=== PATIENT | female | born 1975 | race Caucasian/White ===

== ENCOUNTER 2016-12-15 20:34 | Emergency (ER) | payer BC ==
[~2016-12-15] VITALS: Ht 160 cm; Wt 134.5 kg
[~2016-12-15 20:34] MED LIST: AZIT250T94 PO; BUSP5TAB20 PO; CEPH-443 PO; CETI10CA PO; CIPR500T4 PO; D-ME118S6 PO; FLUT16SP24 NASAL; IBUP800T25 PO; ONDA4TAB14 PO; RANI-270 PO; SODI44SP11 NS
[2016-12-15 20:43] VITALS: Ht 160 cm; Wt 134.5 kg
[2016-12-15 21:14] LABS: URINE BLOOD (Dip) POC 1+ (NEGATIVE)
[2016-12-15 21:24] LABS: ADD SCAN DIFF NO
[2016-12-15 21:27] LABS: BASOPHIL # 0.1 10^3/ul (0.0-0.1); BASOPHILS % 0.3 % (0.0-2.0); EOSINOPHILS # 0.3 10^3/ul (0.0-0.5); EOSINOPHILS % 1.8 % (0.0-7.0); HEMATOCRIT 39.1 % (37.0-47.0); HEMOGLOBIN 12.9 g/dl (12.0-16.0); LYMPHOCYTES # 4.3 10^3/ul (0.8-2.9); LYMPHOCYTES % 29.3 % (15.0-51.0); MEAN CORPUSCULAR HEMOGLOBIN 27.6 pg (29.0-33.0); MEAN CORPUSCULAR VOLUME 83.5 fl (82.0-101.0); MONOCYTE # 0.7 10^3/ul (0.3-0.9); MONOCYTES % 4.8 % (0.0-11.0); NEUTROPHIL # 9.2 10^3/ul (1.6-7.5); NEUTROPHILS % 63.4 % (39.0-77.0); PLATELET COUNT 343 10^3/UL (140-415); RED BLOOD COUNT 4.68 10^6/ul (4.20-5.40); RED CELL DISTRIBUTION WIDTH 14.4 % (11.5-14.5); WHITE BLOOD COUNT 14.5 10^3/ul (4.8-10.8)
[2016-12-15 21:33] LABS: ADD UMIC YES; URINE BILIRUBIN (Dip) NEGATIVE (NEGATIVE); URINE BLOOD (Dip) 1+ (NEGATIVE); URINE COLOR LT. YELLOW (YELLOW); URINE GLUCOSE (Dip) NEGATIVE (NEGATIVE); URINE KETONES (Dip) NEGATIVE (NEGATIVE); URINE LEUKOCYTE ESTERASE (Dip) 1+ (NEGATIVE); URINE NITRITE (Dip) NEGATIVE (NEGATIVE); URINE TOTAL PROTEIN (Dip) TRACE (NEGATIVE); URINE UROBILINOGEN (Dip) 0.2 E.U./dL (0.1-1.0)
[2016-12-15 21:49] LABS: ALBUMIN 3.8 g/dl (3.3-4.9)
[2016-12-15 21:50] LABS: BACTERIA,URINE FEW; POTASSIUM 3.6 mmol/L (3.5-5.1); SQUAMOUS EPITHELIAL CELL,UR MODERATE
[2016-12-15 21:52] LABS: ALBUMIN/GLOBULIN RATIO 1.02; BILIRUBIN,INDIRECT 0.2 mg/dl (0-1.1); BILIRUBIN,TOTAL 0.2 mg/dl (0.2-1.3); CREATININE 0.69 mg/dl (0.44-1.00); TOTAL PROTEIN 7.5 g/dl (6.1-8.1)
[2016-12-15 21:53] LABS: CALCIUM 9.2 mg/dl (8.4-10.2)
[2016-12-15] MEDS ORDERED: KETOROLAC 30 MG INJ IM STA (22:04)
[2016-12-15] MEDS ORDERED: FURO-109 PO (22:08)
[2016-12-15] MEDS ORDERED: NAPR-260 PO (22:08)
[2016-12-15] MEDS ORDERED: CEPH-443 PO (22:08)
[2016-12-15] MEDS ORDERED: CEPHALEXIN 500 MG CAP PO ONE (22:30)
[2016-12-15] MEDS ORDERED: FUROSEMIDE 20 MG TAB PO ONE (22:30)
--- NOTE | 2016-12-15 22:47 | ERD ---
ER Documentation Chief Complaint Date/Time DATE: 12/15/16 TIME: 22:46 Chief Complaint Generalized swelling per pt and Back pain. No known Hx HPI 41-year-old woman presents with bilateral lower extremity swelling 3-4 weeks, began gradually and she denies previous episodes. She has a long history of chronic low back pain as well and has had 3-4 days of back pain which has been nonexertional and nonradiating. Patient has had root urinary frequency but denies hematuria or dysuria, denies weight loss, no fevers or chills, no chest pain or shortness of breath, no orthopnea, no dyspnea on exertion, and no paroxysmal nocturnal dyspnea. Patient denies recent sick contacts, travel or antibiotic use ROS All systems reviewed and are negative except as per history of present illness. Medications Home Meds Active Scripts Cephalexin* (Keflex*) 500 Mg Capsule, 500 MG PO QID for 5 Days, CAP Prov:ORVILLE SOARES MD 12/15/16 Furosemide* (Lasix*) 40 Mg Tablet, 40 MG PO DAILY, #6 TAB Prov:ORVILLE SOARES MD 12/15/16 Naproxen* (Naprosyn*) 500 Mg Tablet, 500 MG PO BID Y for PAIN AND/OR INFLAMMATION, #30 TAB Prov:ORVILLE SOARES MD 12/15/16 Ondansetron (Ondansetron Odt) 4 Mg Tab.rapdis, 4 MG PO Q6H Y for NAUSEA AND/OR VOMITING, #10 TAB Prov:DARREN AVILEZ PA-C 08/04/16 Ciprofloxacin Hcl* (Ciprofloxacin Hcl*) 500 Mg Tablet, 500 MG PO BID for 7 Days , TAB Prov:DARREN AVILEZ PA-C 08/04/16 Cetirizine Hcl* (Zyrtec*) 10 Mg Capsule, 10 MG PO DAILY, #10 TAB.CHEW Prov:NORMAN EID NP 11/17/15 Dextromethorphan Hb-Promethazine Hcl (Promethazine DM Syrup) 180 Ml Syrup, 10 ML PO Q6 Y for COUGH for 10 Days, ML Prov:NORMAN EID NP 11/17/15 Cephalexin* (Keflex*) 500 Mg Capsule, 500 MG PO BID for 7 Days, CAP Prov:JOSE RIVERA NP 08/23/15 Ibuprofen* (Motrin*) 800 Mg Tab, 800 MG PO Q6H Y for PAIN AND OR ELEVATED TEMP, #30 TAB Prov:JOSE RIVERA NP 08/23/15 Azithromycin* (Zithromax*) 250 Mg Tablet, 250 MG PO .ZPACK DIRECTED, #6 TAB TAKE 500 MG (2 TABS) THE FIRST DAY THEN 250 MG (1 TAB) DAYS 2-5 Prov:NORMAN EID NP 08/13/15 Ibuprofen* (Motrin*) 800 Mg Tab, 800 MG PO Q6H Y for PAIN AND OR ELEVATED TEMP, #30 TAB Prov:JOSE RIVERA NP 03/18/15 Fluticasone Propionate* (Flonase* Nasal) 50 Mcg/[place] - 16 Gm [place].susp, 1 SPRAY NASAL DAILY, #1 BOTTLE Prov:JOSE RIVERA NP 03/18/15 Sodium Chloride (Saline Nasal [place]) 45 Ml [place], 2 SPR NS Q2H Y for NASAL CONGESTION, #1 BOT Prov:JOSE RIVERA NP 03/18/15 Reported Medications Buspirone Hcl* (Buspirone Hcl*) 5 Mg Tablet, PO BID 07/31/12 Ranitidine Hcl (Zantac) 150 Mg Tablet, PO BID 07/31/12 Allergies Allergies: Coded Allergies: No Known Drug Allergy (Unverified Allergy, Unknown, 08/23/15) PMhx/Soc BILATERAL MEDULLARY NEPHROCALCINOSIS, chronic back pain, gastritis, obesity, diabetes mellitus Medical and Surgical Hx: pt denies Medical Hx, pt denies Surgical Hx History of Surgery: No Anesthesia Reaction: No Hx Neurological Disorder: No Hx Respiratory Disorders: No Hx Cardiac Disorders: No Hx Psychiatric Problems: No Hx Miscellaneous Medical Probl: No Hx Alcohol Use: No Hx Substance Use: No Hx Tobacco Use: No Smoking Status: Never smoker FmHx Family History: No diabetes Physical Exam Vitals Vital Signs Date Time Temp Pulse Resp B/P Pulse Ox O2 Delivery O2 Flow Rate FiO2 12/15/16 20:43 97.0 99 20 172/84 98 Physical Exam GENERAL: Well-developed, well-nourished, well-hydrated, in no apparent distress , looks nontoxic in appearance HEENT: Moist mucous membranes, pink conjunctiva, no cervical spine tenderness or step-off deformities, no goiter, no jaundice or icterus, extraocular movements intact without pain. No submandibular induration, and no pharyngeal erythema NEURO: Alert and oriented 3, cranial nerves II through XII intact bilaterally, pupils equal round reactive to light, no focal deficits or facial asymmetry, sensation intact distally Strength 5/5 in upper and lower extremities bilaterally CARDIAC: Regular rate and rhythm, no murmurs rubs or gallops LUNGS: Clear bilaterally no wheezing crackles or stridor ABDOMEN: Soft nontender, no guarding, no rigidity, no rebound, no psoas sign no obturator sign. Normoactive bowel sounds SKIN: Warm and dry to touch, no abrasions, contusions, or hematomas, no lacerations, no ecchymosis, no target lesions, and without ulcers EXTREMITIES: No clubbing cyanosis, 3+ pitting edema in the lower extremities bilaterally, calves are bilaterally symmetrical, no Homans sign, no popliteal cord sign. Distal pulses equal and bilateral PSYCH: Normal affect without agitation or irritability Result Diagram: 12/15/16211412/15/162114 Results 24 hrs Laboratory Tests Test 12/15/16 21:14 12/15/16 21:15 Bedside Urine pH (LAB) 6.0 Bedside Urine Protein (LAB) 1+ Bedside Urine Glucose (UA) Negative Bedside Urine Ketones (LAB) Negative Bedside Urine Blood 1+ Bedside Urine Nitrite (LAB) Negative Bedside Urine Leukocyte Esterase (L 1+ White Blood Count 14.510^3/ul Red Blood Count 4.6810^6/ul Hemoglobin 12.9g/dl Hematocrit 39.1% Mean Corpuscular Volume 83.5fl Mean Corpuscular Hemoglobin 27.6pg Mean Corpuscular Hemoglobin Concent 33.0g/dl Red Cell Distribution Width 14.4% Platelet Count 25964^3/UL Mean Platelet Volume 10.0fl Neutrophils % 63.4% Lymphocytes % 29.3% Monocytes % 4.8% Eosinophils % 1.8% Basophils % 0.3% Nucleated Red Blood Cells % 0.0/100WBC Neutrophils # 9.210^3/ul Lymphocytes # 4.310^3/ul Monocytes # 0.710^3/ul Eosinophils # 0.310^3/ul Basophils # 0.110^3/ul Nucleated Red Blood Cells # 0.010^3/ul Urine Color LT. YELLOW Urine Clarity SL HAZY Urine pH 6.0 Urine Specific [place] 1.020 Urine Ketones NEGATIVE Urine Nitrite NEGATIVE Urine Bilirubin NEGATIVE Urine Urobilinogen 0.2 E.U./dL Urine Leukocyte Esterase 1+ Urine Microscopic RBC 2-5/HPF Urine Microscopic WBC 10-25/HPF Urine Squamous Epithelial Cells MODERATE Urine Bacteria FEW Urine Hemoglobin 1+ Urine Glucose NEGATIVE% Urine Total Protein TRACE Sodium Level 141mmol/L Potassium Level 3.6mmol/L Chloride Level 105mmol/L Carbon Dioxide Level 23mmol/L Anion Gap 17 Blood Urea Nitrogen 15mg/dl Creatinine 0.69mg/dl Glucose Level 159mg/dl Calcium Level 9.2mg/dl Total Bilirubin 0.2mg/dl Direct Bilirubin 0.00mg/dl Indirect Bilirubin 0.2mg/dl Aspartate Amino Transf (AST/SGOT) 19IU/L Alanine Aminotransferase (ALT/SGPT) 27IU/L Alkaline Phosphatase 118IU/L Total Protein 7.5g/dl Albumin 3.8g/dl Globulin 3.70g/dl Albumin/Globulin Ratio 1.02 Lipase 100U/L Current Medications Medications (Trade) Dose Ordered Sig/[place] Route PRN Reason Start Time Stop Time Status Last Admin Dose Admin Ketorolac Tromethamine (Toradol) 30 mg ONCE STAT IM 12/15/16 22:04 12/15/16 22:05 DC 12/15/16 22:23 Cephalexin (Keflex) 500 mg ONCE ONCE PO 12/15/16 22:30 12/15/16 22:31 DC 12/15/16 22:21 Furosemide (Lasix) 40 mg ONCE ONCE PO 12/15/16 22:30 12/15/16 22:31 DC 12/15/16 22:22 Procedures/MDM Patient was afebrile, test was negative and urinalysis was consistent with urinary tract infection with elevated urine WBCs and leukocytes. CBC revealed a mild leukocytosis, electrolytes were normal, liver function tests were normal. I administered Toradol 30 mg intramuscular injection for pain control, furosemide 40 mg by mouth for diuresis and cephalexin 500 mg by mouth. Patient will be discharged for follow-up with PMD for reevaluation and repeat urinalysis after antibiotics are completed. Differential diagnoses considered, included but not limited to acute coronary syndrome, deep vein thrombosis of the lower extremities, acute kidney injury, cirrhosis, congestive heart failure, pulmonary embolism, aortic dissection, abdominal aortic aneurysm, sepsis, stroke, meningitis, encephalitis, pneumonia, appendicitis, cholecystitis, bowel obstruction, pyelonephritis, nephrolithiasis , cystitis, as well as metabolic, hematologic, and electrolyte abnormalities. As well as abscess, cellulitis, fractures, and dislocations. Patient feels much better at this time, and vital signs are normal, symptoms have improved. I did give strict instructions to return to the ED if symptoms continue or worsen, patient will otherwise follow-up with primary care physician. Patient understood instructions and agreed to plan. Departure Diagnosis: Primary Impression: Peripheral edema Additional Impressions: Back pain Back pain location: low back pain Chronicity: acute Back pain laterality: bilateral Sciatica presence: without sciatica Qualified Code: M54.5 - Acute bilateral low back pain without sciatica UTI (urinary tract infection) Urinary tract infection type: acute cystitis Hematuria presence: without hematuria Qualified Code: N30.00 - Acute cystitis without hematuria Condition: Good Patient Instructions: Back Pain (Acute Or Chronic), Peripheral Edema, Bilateral , Bladder Infection, Female (Adult) ORVILLE SOARES MD Dec 15, 2016 22:47
[2016-12-15 22:56] VITALS: BP 165/79; PULSE 85; RESP 16
== END 2016-12-15 22:57 | disposition home or self-care (01) ==
LOC: FTE 20:34
DX: R60.0 Localized edema (principal); M54.5 Low back pain; N30.00 Acute cystitis without hematuria; E11.9 Type 2 diabetes mellitus without complications; E66.9 Obesity, unspecified; Z68.43 Body mass index [BMI] 50.0-59.9, adult
CPT/HCPCS: 36415; 80053; 81001; 81003; 83690; 85025; 96372; 99284; J1885; Z7610

== ENCOUNTER 2017-03-29 10:31 | Emergency (ER) | payer BC ==
[~2017-03-29] VITALS: Wt 100.0 kg
[~2017-03-29 10:31] MED LIST changes: +FURO-109 PO; +NAPR-260 PO
[2017-03-29] MEDS ORDERED: ONDANSETRON 4 MG INJ IV STA (11:03)
[2017-03-29] MEDS ORDERED: KETOROLAC 30 MG INJ IV STA (11:03)
[2017-03-29] MEDS ORDERED: SOD CHLORIDE 0.9% 1,000 ML IV STA (11:03)
[2017-03-29 11:32] LABS: URINE BLOOD (Dip) POC 2+ (NEGATIVE)
[2017-03-29 11:53] LABS: ADD UMIC YES; UR ASCORBIC ACID NEGATIVE (NEGATIVE); UR BACTERIA FEW /HPF (NONE SEEN); UR BILIRUBIN (Dip) NEGATIVE (NEGATIVE); UR BLOOD (Dip) 2+ mg/dL (NEGATIVE); UR CLARITY SLIGHTLY CLOUDY (CLEAR); UR COLOR YELLOW (YELLOW); UR GLUCOSE (Dip) NEGATIVE (NEGATIVE); UR KETONES (Dip) NEGATIVE (NEGATIVE); UR LEUKOCYTE ESTERASE (Dip) TRACE Leu/ul (NEGATIVE); UR MUCUS FEW /HPF (NONE SEEN); UR NITRITE (Dip) NEGATIVE (NEGATIVE); UR RBC 28 /HPF (0-5); UR SPECIFIC GRAVITY (Dip) 1.014 (1.003-1.030); UR SQUAMOUS EPITHELIAL CELL FEW /HPF (FEW); UR TOTAL PROTEIN (Dip) 2+ mg/dl (NEGATIVE); UR UROBILINOGEN (Dip) NEGATIVE (NEGATIVE)
[2017-03-29 11:53] LABS: ADD SCAN DIFF NO
--- NOTE | 2017-03-29 11:54 | RADRPT ---
PROCEDURE: US Abdomen (right upper quadrant). CLINICAL INDICATION: Abdominal pain. TECHNIQUE: Multiple real-time longitudinal and transverse images of the right upper quadrant of th e abdomen were acquired utilizing a curved array transducer. Images were reviewed on a high-resoluti on PACS workstation. COMPARISON: 08/23/2015 FINDINGS: The liver is enlarged in size and demonstrates diffusely increased echogenicity without focal mass o r intrahepatic biliary dilatation. The gallbladder is normal. There is no pericholecystic fluid or gallbladder wall thickening or gallstones. No intra or extrahepatic biliary dilatation is seen. T he common bile duct measures 4.4 mm in maximal dimension. The visualized portions of the pancreas a re unremarkable with obscuration of the tail of the pancreas. No free fluid is identified. The right kidney measures 12.2 cm in length. The medullary pyramids are diffusely echogenic within the right kidney. There is otherwise normal echogenicity within the right kidney. There is no sandro nephric fluid collection. No hydronephrosis or mass is seen. IMPRESSION: 1. Hepatomegaly and hepatic steatosis. 2. Diffusely echogenic medullary pyramids, suggesting medullary nephrocalcinosis. RPTAT: JJ .Terrence Kaiser MD, MD Date Time Electronically viewed and signed by .Terrence Kaiser MD, on 03/29/2017 11:53 .A/
[2017-03-29 12:10] LABS: BASOPHIL # 0.1 10^3/ul (0.0-0.1); BASOPHILS % 0.4 % (0.0-2.0); EOSINOPHILS # 0.2 10^3/ul (0.0-0.5); EOSINOPHILS % 1.4 % (0.0-7.0); HEMATOCRIT 43.6 % (37.0-47.0); HEMOGLOBIN 14.1 g/dl (12.0-16.0); LYMPHOCYTES # 3.6 10^3/ul (0.8-2.9); LYMPHOCYTES % 29.9 % (15.0-51.0); MEAN CORPUSCULAR HGB CONC 32.3 g/dl (32.0-37.0); MEAN CORPUSCULAR VOLUME 83.5 fl (82.0-101.0); MONOCYTE # 0.7 10^3/ul (0.3-0.9); MONOCYTES % 6.1 % (0.0-11.0); NEUTROPHIL # 7.5 10^3/ul (1.6-7.5); NEUTROPHILS % 61.9 % (39.0-77.0); PLATELET COUNT 406 10^3/UL (140-415); RED BLOOD COUNT 5.22 10^6/ul (4.20-5.40); RED CELL DISTRIBUTION WIDTH 14.7 % (11.5-14.5); WHITE BLOOD COUNT 12.1 10^3/ul (4.8-10.8)
[2017-03-29 12:27] LABS: ALBUMIN 4.2 g/dl (3.3-4.9); ALBUMIN/GLOBULIN RATIO 1.05; BILIRUBIN,INDIRECT 0.1 mg/dl (0-1.1); BILIRUBIN,TOTAL 0.1 mg/dl (0.2-1.3); CALCIUM 9.7 mg/dl (8.4-10.2); CREATININE 0.86 mg/dl (0.44-1.00); POTASSIUM 3.6 mmol/L (3.5-5.1); TOTAL PROTEIN 8.2 g/dl (6.1-8.1)
--- NOTE | 2017-03-29 13:32 | RADRPT ---
PROCEDURE: CT Abdomen and Pelvis without contrast. CLINICAL INDICATION: Abdominal pain. TECHNIQUE: CT scan of the abdomen and pelvis without contrast was performed on a multidetector hig h-resolution CT scanner. The patient was scanned without intravenous contrast. Coronal and sagittal reformatted images were obtained from the axial source images. Images were reviewed on a high-resol [employer] PACS workstation. One or more of the following dose reduction techniques were used: Automated exposure control, adjustment of the mA and/or kV according to patient size, use of iterative recon struction technique. The total exam CTDI equals 20.18 mGy and the total exam DLP equals 1353.02 mGy -cm. COMPARISON: Correlation with ultrasound from the same day. FINDINGS: CT abdomen: The lung bases are clear. The heart size is normal, without pericardial thickening or effusion. The liver is enlarged measuring 22.6 cm and demonstrates diffusely decreased density without focal m ass or intrahepatic biliary dilatation. The spleen is normal in size and homogeneous in density. T he stomach is grossly unremarkable. The pancreas as visualized is normal. The gallbladder and bili laeny tree are unremarkable and there is no evidence for biliary dilatation. The adrenal glands are s ymmetric and normal. The bilateral renal medullary pyramids are calcified. A 6 mm calculus is present in the distal righ t ureter, just proximal to the ureterovesicular junction. There is associated mild right-sided hydr oureteronephrosis. Suspect additional nonobstructive intrarenal calculi within the bilateral kidneys , difficult to discern secondary to medullary nephrocalcinosis. Otherwise, the kidneys are unremark able. No mass lesion is seen. The aorta is of normal caliber. There is no retroperitoneal lymphadenopathy. The asim hepatis reg ion is clear. The small bowel and mesentery, as visualized, are unremarkable. Scattered diverticula are present throughout the descending and sigmoid colon without evidence of diverticulitis. CT pelvis: The small bowel loops situated within the pelvis are unremarkable. A 2.3 cm fat density lesion is p resent in the right adnexal area. There are associated areas of soft tissue. No definite calcifica tions are seen. Otherwise, the pelvic organs are normal. The pelvic sidewalls and inguinal regions are clear. The sigmoid colon and rectum are unremarkable. The appendix is normal. No mass, lymphad enopathy, or free fluid is seen. No acute inflammation is seen. The surrounding osseous structures are unremarkable. No osteolytic or osteoblastic lesion is detec jessica. IMPRESSION: 1. 6 mm obstructive calculus within the distal right ureter resulting in mild right-sided hydrouret eronephrosis. 2. Bilateral diffusely calcified renal medullary pyramids, consistent with medullary nephrocalcinos is. This may be seen in the setting of medullary sponge kidney, milk-alkali syndrome, renal tubular acidosis, Bolivar syndrome, or hyperparathyroidism. Additional bilateral nonobstructive renal calc ciarra are suspected but difficult to discern secondary to medullary nephrocalcinosis. 3. Diverticulosis without evidence of diverticulitis. 4. 2.3 cm right adnexal fat density lesion, likely representing a dermoid cyst. 5. Hepatic steatosis. RPTAT: JJ .Terrence Kaiser MD, Date Time Electronically viewed and signed by .Terrence Kaiser MD, on 03/29/2017 13:32 .A/
[2017-03-29] MEDS ORDERED: TRAM50TA2 PO (14:26)
--- NOTE | 2017-03-29 14:26 | ERD ---
ER Documentation Chief Complaint Date/Time DATE: 03/29/17 Chief Complaint Right flank pain HPI The patient is a 41-year-old female with a history of nephrocalcinosis and prior kidney stones who presents to the Emergency Department with complaint of right flank pain. The patient reports that on Sunday she developed sudden-onset of right-sided flank pain. The pain is sharp in nature, waxing and waning in intensity. The patient notes that twice the patient has been so strong that she has developed nausea, with nonbilious, nonbloody emesis. Otherwise, she denies any diarrhea. Since onset of her pain, she notes that the pain has been radiating lower to the abdomen, and prior to arrival today felt the pain in the right lower abdomen. As she has a history of kidney stones requiring lithotripsy , she is concerned that she may have a recurrent stone, and therefore presenting to the Emergency Department for evaluation. She denies any dysuria, urinary frequency, urgency, hematuria, vaginal bleeding or new vaginal discharge. Last menstrual period was 03/22/2017 and normal. She has no other complaints at this time. ROS All systems reviewed and are negative except as per history of present illness. Medications Home Meds Active Scripts Ciprofloxacin Hcl* (Ciprofloxacin Hcl*) 500 Mg Tablet, 500 MG PO BID for 7 Days , TAB Prov:KEKE TORRES PA-C 03/29/17 Ibuprofen* (Motrin*) 600 Mg Tab, 600 MG PO Q6, #30 TAB Prov:KEKE TORRES PA-C 03/29/17 Tramadol HCl (Tramadol HCl) 50 Mg Tablet, 50 MG PO Q6 Y for PAIN, #15 TAB Prov:KEKE TORRES PA-C 03/29/17 Cephalexin* (Keflex*) 500 Mg Capsule, 500 MG PO QID for 5 Days, CAP Prov:ORVILLE SOARES MD 12/15/16 Furosemide* (Lasix*) 40 Mg Tablet, 40 MG PO DAILY, #6 TAB Prov:ORVILLE SOARES MD 12/15/16 Naproxen* (Naprosyn*) 500 Mg Tablet, 500 MG PO BID Y for PAIN AND/OR INFLAMMATION, #30 TAB Prov:ORVILLE SOARES MD 12/15/16 Ondansetron (Ondansetron Odt) 4 Mg Tab.rapdis, 4 MG PO Q6H Y for NAUSEA AND/OR VOMITING, #10 TAB Prov:DARREN AVILEZ PA-C 08/04/16 Ciprofloxacin Hcl* (Ciprofloxacin Hcl*) 500 Mg Tablet, 500 MG PO BID for 7 Days , TAB Prov:DARREN AVILEZ PA-C 08/04/16 Cetirizine Hcl* (Zyrtec*) 10 Mg Capsule, 10 MG PO DAILY, #10 TAB.CHEW Prov:NORMAN EID NP 11/17/15 Dextromethorphan Hb-Promethazine Hcl (Promethazine DM Syrup) 180 Ml Syrup, 10 ML PO Q6 Y for COUGH for 10 Days, ML Prov:NORMAN EID NP 11/17/15 Cephalexin* (Keflex*) 500 Mg Capsule, 500 MG PO BID for 7 Days, CAP Prov:JOSE RIVERA NP 08/23/15 Ibuprofen* (Motrin*) 800 Mg Tab, 800 MG PO Q6H Y for PAIN AND OR ELEVATED TEMP, #30 TAB Prov:JOSE RIVERA NP 08/23/15 Azithromycin* (Zithromax*) 250 Mg Tablet, 250 MG PO .RuslanPACK DIRECTED, #6 TAB TAKE 500 MG (2 TABS) THE FIRST DAY THEN 250 MG (1 TAB) DAYS 2-5 Prov:NORMAN EID NP 08/13/15 Ibuprofen* (Motrin*) 800 Mg Tab, 800 MG PO Q6H Y for PAIN AND OR ELEVATED TEMP, #30 TAB Prov:JOSE RIVERA NP 03/18/15 Fluticasone Propionate* (Flonase* Nasal) 50 Mcg/[place] - 16 Gm [place].susp, 1 SPRAY NASAL DAILY, #1 BOTTLE Prov:JOSE RIVERA NP 03/18/15 Sodium Chloride (Saline Nasal [place]) 45 Ml [place], 2 SPR NS Q2H Y for NASAL CONGESTION, #1 BOT Prov:JOSE RIVERA NP 03/18/15 Reported Medications Buspirone Hcl* (Buspirone Hcl*) 5 Mg Tablet, PO BID 07/31/12 Ranitidine Hcl (Zantac) 150 Mg Tablet, PO BID 07/31/12 Allergies Allergies: Coded Allergies: No Known Drug Allergy (Unverified Allergy, Unknown, 08/23/15) PMhx/Soc Medical and Surgical Hx: pt denies Medical Hx, pt denies Surgical Hx History of Surgery: No Anesthesia Reaction: No Hx Neurological Disorder: No Hx Respiratory Disorders: No Hx Cardiac Disorders: No Hx Psychiatric Problems: No Hx Miscellaneous Medical Probl: No Hx Alcohol Use: No Hx Substance Use: No Hx Tobacco Use: No Smoking Status: Never smoker Physical Exam Vitals Vital Signs Date Time Temp Pulse Resp B/P Pulse Ox O2 Delivery O2 Flow Rate FiO2 03/29/17 14:58 98.1 82 20 144/79 98 Room Air 03/29/17 10:33 97.8 115 20 157/96 98 Physical Exam GENERAL: Well-developed, well-nourished, in no acute distress HEENT: Head is normocephalic, atraumatic. No scleral pallor or icterus. Extraocular movements intact. Conjunctiva pink. Moist mucous membranes. NECK: Supple. Full range of motion. RESPIRATORY: Lungs are clear to auscultation bilaterally. No rales, rhonchi or wheezing. Equal breath sounds. Normal expiratory effort. CARDIOVASCULAR: Regular rhythm. S1 and S2 normal. GASTROINTESTINAL: Abdomen is soft and nondistended. Mild tenderness to palpation over the right upper quadrant of the abdomen. Negative Goldsmith's sign. No tenderness at McBurney's point. No guarding, no rebound tenderness. FLANK: No CVA tenderness, no mass or swelling. BACK: No midline tenderness. EXTREMITIES: No clubbing, cyanosis, or edema. Normal skin perfusion. Full range of motion of both the upper and lower extremities bilaterally. Muscle tone is normal. No focal swelling or erythema. Distal pulses are palpable, 2+ bilaterally. Capillary refill is less than 2 seconds. NEUROLOGIC: The patient is alert, awake, and oriented x 3. No focal neurologic deficits. Cranial nerves are grossly intact. Gait is observed and normal. There is no ataxia. Motor normal in all extremities. Sensation grossly intact. Coordination normal. Speech is normal. Normal district manager strength bilaterally. Normal plantar flexion. INTEGUMENT: Skin is clean, dry and intact. No rashes, lesions or petechiae present. Normal turgor. PSYCHIATRIC: Appropriate; Cooperative. Result Diagram: 03/29/17 1135 03/29/17 1135 Results 24 hrs Laboratory Tests Test 03/29/17 11:30 03/29/17 11:35 03/29/17 11:37 Urine Color YELLOW Urine Clarity SLIGHTLY CLOUDY Urine pH 6.0 Urine Specific [place] 1.014 Urine Ketones NEGATIVEmg/dL Urine Nitrite NEGATIVEmg/dL Urine Bilirubin NEGATIVEmg/dL Urine Urobilinogen NEGATIVEmg/dL Urine Leukocyte Esterase TRACELeu/ul Urine Microscopic RBC 28/HPF Urine Microscopic WBC 8/HPF Urine Squamous Epithelial Cells FEW/HPF Urine Bacteria FEW/HPF Urine Mucus FEW/HPF Urine Hemoglobin 2+mg/dL Urine Glucose NEGATIVEmg/dL Urine Total Protein 2+mg/dl White Blood Count 12.110^3/ul Red Blood Count 5.2210^6/ul Hemoglobin 14.1g/dl Hematocrit 43.6% Mean Corpuscular Volume 83.5fl Mean Corpuscular Hemoglobin 27.0pg Mean Corpuscular Hemoglobin Concent 32.3g/dl Red Cell Distribution Width 14.7% Platelet Count 84893^3/UL Mean Platelet Volume 10.0fl Neutrophils % 61.9% Lymphocytes % 29.9% Monocytes % 6.1% Eosinophils % 1.4% Basophils % 0.4% Neutrophils # 7.510^3/ul Lymphocytes # 3.610^3/ul Monocytes # 0.710^3/ul Eosinophils # 0.210^3/ul Basophils # 0.110^3/ul Nucleated Red Blood Cells # 0.010^3/ul Sodium Level 146mmol/L Potassium Level 3.6mmol/L Chloride Level 103mmol/L Carbon Dioxide Level 27mmol/L Anion Gap 20 Blood Urea Nitrogen 14mg/dl Creatinine 0.86mg/dl Glucose Level 142mg/dl Calcium Level 9.7mg/dl Total Bilirubin 0.1mg/dl Direct Bilirubin 0.00mg/dl Indirect Bilirubin 0.1mg/dl Aspartate Amino Transf (AST/SGOT) 44IU/L Alanine Aminotransferase (ALT/SGPT) 54IU/L Alkaline Phosphatase 117IU/L Total Protein 8.2g/dl Albumin 4.2g/dl Globulin 4.00g/dl Albumin/Globulin Ratio 1.05 Lipase 65U/L Serum HCG, Qualitative NEGATIVE Bedside Urine pH (LAB) 6.0 Bedside Urine Protein (LAB) 2+ Bedside Urine Glucose (UA) Negative Bedside Urine Ketones (LAB) Negative Bedside Urine Blood 2+ Bedside Urine Nitrite (LAB) Negative Bedside Urine Leukocyte Esterase (L Trace Current Medications Medications (Trade) Dose Ordered Sig/Arabella Route PRN Reason Start Time Stop Time Status Last Admin Dose Admin Sodium Chloride (NS) 1,000 ml @ 1,000 mls/hr Q1H STAT IV 03/29/17 11:03 03/29/17 12:02 DC 03/29/17 11:37 Ondansetron HCl (Zofran Inj) 4 mg ONCE STAT IV 03/29/17 11:03 03/29/17 11:06 DC 03/29/17 11:37 Ketorolac Tromethamine (Toradol) 30 mg ONCE STAT IV 03/29/17 11:03 03/29/17 11:06 DC 03/29/17 11:38 Procedures/MDM The patient's case was reviewed and discussed with Dr. Soares, ED attending/ supervising physician, who agrees with the plan of care including labs, treatment and advanced imaging as appropriate. DIAGNOSTIC TESTS AND INTERPRETATION: PROCEDURE: US Abdomen (right upper quadrant). CLINICAL INDICATION: Abdominal pain. TECHNIQUE: Multiple real-time longitudinal and transverse images of the right upper quadrant of the abdomen were acquired utilizing a curved array transducer. Images were reviewed on a high-resolution PACS workstation. COMPARISON: 08/23/2015 FINDINGS: The liver is enlarged in size and demonstrates diffusely increased echogenicity without focal mass or intrahepatic biliary dilatation. The gallbladder is normal. There is no pericholecystic fluid or gallbladder wall thickening or gallstones. No intra or extrahepatic biliary dilatation is seen. The common bile duct measures 4.4 mm in maximal dimension. The visualized portions of the pancreas are unremarkable with obscuration of the tail of the pancreas. No free fluid is identified. The right kidney measures 12.2 cm in length. The medullary pyramids are diffusely echogenic within the right kidney. There is otherwise normal echogenicity within the right kidney. There is no perinephric fluid collection. No hydronephrosis or mass is seen. IMPRESSION: 1. Hepatomegaly and hepatic steatosis. 2. Diffusely echogenic medullary pyramids, suggesting medullary nephrocalcinosis. .Terrence Kaiser MD, MD Date Time Electronically viewed and signed by .Terrence Kaiser MD, MD on 03/29/2017 11:53 PROCEDURE: CT Abdomen and Pelvis without contrast. CLINICAL INDICATION: Abdominal pain. TECHNIQUE: CT scan of the abdomen and pelvis without contrast was performed on a multidetector high-resolution CT scanner. The patient was scanned without intravenous contrast. Coronal and sagittal reformatted images were obtained from the axial source images. Images were reviewed on a high-resolution PACS workstation. One or more of the following dose reduction techniques were used: Automated exposure control, adjustment of the mA and/or kV according to patient size, use of iterative reconstruction technique. The total exam CTDI equals 20.18 mGy and the total exam DLP equals 1353.02 mGy-cm. COMPARISON: Correlation with ultrasound from the same day. FINDINGS: CT abdomen: The lung bases are clear. The heart size is normal, without pericardial thickening or effusion. The liver is enlarged measuring 22.6 cm and demonstrates diffusely decreased density without focal mass or intrahepatic biliary dilatation. The spleen is normal in size and homogeneous in density. The stomach is grossly unremarkable. The pancreas as visualized is normal. The gallbladder and biliary tree are unremarkable and there is no evidence for biliary dilatation. The adrenal glands are symmetric and normal. The bilateral renal medullary pyramids are calcified. A 6 mm calculus is present in the distal right ureter, just proximal to the ureterovesicular junction. There is associated mild right-sided hydroureteronephrosis. Suspect additional nonobstructive intrarenal calculi within the bilateral kidneys, difficult to discern secondary to medullary nephrocalcinosis. Otherwise, the kidneys are unremarkable. No mass lesion is seen. The aorta is of normal caliber. There is no retroperitoneal lymphadenopathy. The asim hepatis region is clear. The small bowel and mesentery, as visualized , are unremarkable. Scattered diverticula are present throughout the descending and sigmoid colon without evidence of diverticulitis. CT pelvis: The small bowel loops situated within the pelvis are unremarkable. A 2.3 cm fat density lesion is present in the right adnexal area. There are associated areas of soft tissue. No definite calcifications are seen. Otherwise, the pelvic organs are normal. The pelvic sidewalls and inguinal regions are clear. The sigmoid colon and rectum are unremarkable. The appendix is normal. No mass , lymphadenopathy, or free fluid is seen. No acute inflammation is seen. The surrounding osseous structures are unremarkable. No osteolytic or osteoblastic lesion is detected. IMPRESSION: 1. 6 mm obstructive calculus within the distal right ureter resulting in mild right-sided hydroureteronephrosis. 2. Bilateral diffusely calcified renal medullary pyramids, consistent with medullary nephrocalcinosis. This may be seen in the setting of medullary sponge kidney, milk-alkali syndrome, renal tubular acidosis, [place] syndrome, or hyperparathyroidism. Additional bilateral nonobstructive renal calculi are suspected but difficult to discern secondary to medullary nephrocalcinosis. 3. Diverticulosis without evidence of diverticulitis. 4. 2.3 cm right adnexal fat density lesion, likely representing a dermoid cyst. 5. Hepatic steatosis. .Terrence Kaiser MD, MD Date Time Electronically viewed and signed by .Terrence Kaiser MD, MD on 03/29/2017 13:32 EMERGENCY DEPARTMENT COURSE: The patient was stable throughout the ED course. IV access established by nursing staff. Fluids, Toradol, Zofran administered. Laboratory testing, US and CT imaging performed. On reevaluation, the patient was resting comfortably with no signs of acute distress. She reports significant improvement in her symptoms. MEDICAL DECISION MAKING: This is a 41-year-old female with history of prior kidney stone and nephrocalcinosis presenting to the Emergency Department with complaint of right-sided flank pain radiating to the right lower abdomen. She had mild tenderness to palpation over the right upper abdomen, though negative Goldsmith's sign. She had no lower abdominal tenderness to suggest appendicitis. Abdomen was soft, non-distended, no indication of acute/surgical abdomen. Differential diagnosis includes, but is not limited to, AAA, nephrolithiasis, cystitis, pyelonephritis, biliary colic, pancreatitis, appendicitis, aortic dissection, mesenteric ischemia, hernia, perforated viscous, diverticulitis, bowel obstruction, cancer, ovarian cyst, ovarian torsion, fibroids, shingles, retroperitoneal abscess/ hematoma. US imaging revealed findings consistent with nephrocalcinosis (known to patient). Otherwise, no evidence of cholelithiasis, cholecystitis, cholangitis, gallstone pancreatitis. Creatinine and BUN within normal limits, no prerenal azotemia or acute kidney injury. CT abdomen and pelvis revealed 6 mm obstructive calculus within the distal right ureter resulting in mild right-sided hydroureteronephrosis, and again, findings of medullary nephrocalcinosis. Additionally, patient noted to have a right dermoid cyst. Patient was provided a copy of all results, and advised to follow up as an outpatient. Additionally, urinalysis performed revealed trace urine leukocyte esterase with few bacteria. However, patient currently with dysuria, polyuria, frequency, urgency, hematuria. Will cover patient for possible infection, and prescribe Ciprofloxacin, given findings of ureterolithiasis. After rest and administration of fluids and medications, the patient reports no new complaints, and significantly decreased pain. At this time, the patient is in stable condition and therefore can be discharged home with prescriptions for Ciprofloxacin, Ibuprofen and Tramadol, and given strict return precautions for signs of deteriorating or worsening condition. The patient is advised to follow up with a urologist and primary care provider within 1-2 days for reevaluation and further management, or return to the ER sooner for any new or worsening symptoms. I shared my medical decision making and plan with the patient at length and in great detail, and the patient verbally understands and agrees with the plan for further observation and care as an outpatient. At the time of discharge, all questions were answered. Departure Diagnosis: Primary Impression: Ureterolithiasis Additional Impression: Right flank pain Condition: Stable Patient Instructions: Flank Pain, Uncertain Cause, Kidney Stone W/ Colic Additional Instructions: Call your primary care doctor and urologist TOMORROW for an appointment during the next 1-2 days.See the doctor sooner or return here if your condition worsens before your appointment time. KEKE TORRES PA-C Mar 29, 2017 14:26
[2017-03-29] MEDS ORDERED: CIPR500T4 PO (14:27)
[2017-03-29] MEDS ORDERED: IBUP-1542 PO (14:27)
[2017-03-29 14:58] VITALS: BP 144/79; PULSE 82; RESP 20; TEMP 98.1
== END 2017-03-29 14:59 | disposition home or self-care (01) ==
LOC: FTE 10:31
DX: N20.1 Calculus of ureter (principal); R10.2 Pelvic and perineal pain
CPT/HCPCS: 36415; 74176; 76705; 80053; 81001; 83690; 84703; 85025; 96374; 96375; 99285; J1885; J2405; J7030; 81003

== ENCOUNTER 2017-04-02 08:54 | Emergency (ER) | payer BC ==
[~2017-04-02] VITALS: Ht 160 cm; Wt 131.5 kg
[~2017-04-02 08:54] MED LIST changes: +IBUP-1542 PO; +TRAM50TA2 PO
[2017-04-02 08:57] VITALS: Ht 160 cm; Wt 131.5 kg
[2017-04-02] MEDS ORDERED: KETOROLAC 30 MG INJ IM STA (09:21)
[2017-04-02 10:31] LABS: BASOPHIL # 0.1 10^3/ul (0.0-0.1); BASOPHILS % 0.6 % (0.0-2.0); EOSINOPHILS # 0.3 10^3/ul (0.0-0.5); EOSINOPHILS % 2.3 % (0.0-7.0); HEMATOCRIT 42.6 % (37.0-47.0); HEMOGLOBIN 14.1 g/dl (12.0-16.0); LYMPHOCYTES % 26.2 % (15.0-51.0); MEAN CORPUSCULAR HEMOGLOBIN 27.1 pg (29.0-33.0); MEAN CORPUSCULAR HGB CONC 33.1 g/dl (32.0-37.0); MEAN CORPUSCULAR VOLUME 81.8 fl (82.0-101.0); MONOCYTE # 0.6 10^3/ul (0.3-0.9); NEUTROPHIL # 7.6 10^3/ul (1.6-7.5); NEUTROPHILS % 65.6 % (39.0-77.0); PLATELET COUNT 372 10^3/UL (140-415); RED BLOOD COUNT 5.21 10^6/ul (4.20-5.40); RED CELL DISTRIBUTION WIDTH 14.5 % (11.5-14.5); WHITE BLOOD COUNT 11.5 10^3/ul (4.8-10.8)
[2017-04-02 10:55] LABS: CALCIUM 9.5 mg/dl (8.4-10.2); CREATININE 0.74 mg/dl (0.44-1.00)
[2017-04-02 11:19] VITALS: BP 132/76; PULSE 84; RESP 18; TEMP 97.6
--- NOTE | 2017-04-02 14:41 | ERD ---
ER Documentation Chief Complaint Date/Time DATE: 04/02/17 TIME: 14:35 Chief Complaint right flank pain, was dx kidney stones 4 days ago HPI This patient is a 41-year-old female presenting to the emergency department with complaints of right flank pain. The patient was diagnosed with kidney stones 4 days ago and was seen here with a full abdominal workup at that time. The patient states the symptoms have worsened over the past 4 days. She did not have a follow-up with urologist or her primary care physician. Aggravating factors include movement. Alleviating factors include rest. She denies fevers , chills, chest pain, shortness of breath, or other symptoms currently. ROS All systems reviewed and are negative except as per history of present illness. Medications Home Meds Active Scripts Ciprofloxacin Hcl* (Ciprofloxacin Hcl*) 500 Mg Tablet, 500 MG PO BID for 7 Days , TAB Prov:KEKE TORRES PA-C 03/29/17 Ibuprofen* (Motrin*) 600 Mg Tab, 600 MG PO Q6, #30 TAB Prov:KEKE TORRES PA-C 03/29/17 Tramadol HCl (Tramadol HCl) 50 Mg Tablet, 50 MG PO Q6 Y for PAIN, #15 TAB Prov:KEKE TORRES PA-C 03/29/17 Cephalexin* (Keflex*) 500 Mg Capsule, 500 MG PO QID for 5 Days, CAP Prov:ORVILLE SOARES MD 12/15/16 Furosemide* (Lasix*) 40 Mg Tablet, 40 MG PO DAILY, #6 TAB Prov:ORVILLE SOARES MD 12/15/16 Naproxen* (Naprosyn*) 500 Mg Tablet, 500 MG PO BID Y for PAIN AND/OR INFLAMMATION, #30 TAB Prov:ORVILLE SOARES MD 12/15/16 Ondansetron (Ondansetron Odt) 4 Mg Tab.rapdis, 4 MG PO Q6H Y for NAUSEA AND/OR VOMITING, #10 TAB Prov:DARREN AVILEZ PA-C 08/04/16 Ciprofloxacin Hcl* (Ciprofloxacin Hcl*) 500 Mg Tablet, 500 MG PO BID for 7 Days , TAB Prov:DARREN AVILEZ PA-C 08/04/16 Cetirizine Hcl* (Zyrtec*) 10 Mg Capsule, 10 MG PO DAILY, #10 TAB.CHEW Prov:NORMAN EID I. RETAIL BANKING MANAGER 11/17/15 Dextromethorphan Hb-Promethazine Hcl (Promethazine DM Syrup) 180 Ml Syrup, 10 ML PO Q6 Y for COUGH for 10 Days, ML Prov:NORMAN EID I. RETAIL BANKING MANAGER 11/17/15 Cephalexin* (Keflex*) 500 Mg Capsule, 500 MG PO BID for 7 Days, CAP Prov:JOSE RIVERA RETAIL BANKING MANAGER 08/23/15 Ibuprofen* (Motrin*) 800 Mg Tab, 800 MG PO Q6H Y for PAIN AND OR ELEVATED TEMP, #30 TAB Prov:JOSE RIVERA RETAIL BANKING MANAGER 08/23/15 Azithromycin* (Zithromax*) 250 Mg Tablet, 250 MG PO .ZPACK DIRECTED, #6 TAB TAKE 500 MG (2 TABS) THE FIRST DAY THEN 250 MG (1 TAB) DAYS 2-5 Prov:NORMAN EID I. RETAIL BANKING MANAGER 08/13/15 Ibuprofen* (Motrin*) 800 Mg Tab, 800 MG PO Q6H Y for PAIN AND OR ELEVATED TEMP, #30 TAB Prov:JOSE RIVERA NP 03/18/15 Fluticasone Propionate* (Flonase* Nasal) 50 Mcg/[place] - 16 Gm [place].susp, 1 SPRAY NASAL DAILY, #1 BOTTLE Prov:JOSE RIVERA NP 03/18/15 Sodium Chloride (Saline Nasal [place]) 45 Ml [place], 2 SPR NS Q2H Y for NASAL CONGESTION, #1 BOT Prov:JOSE RIVERA NP 03/18/15 Reported Medications Buspirone Hcl* (Buspirone Hcl*) 5 Mg Tablet, PO BID 07/31/12 Ranitidine Hcl (Zantac) 150 Mg Tablet, PO BID 07/31/12 Allergies Allergies: Coded Allergies: No Known Drug Allergy (Unverified Allergy, Unknown, 04/02/17) PMhx/Soc Medical and Surgical Hx: pt denies Medical Hx, pt denies Surgical Hx History of Surgery: No Anesthesia Reaction: No Hx Neurological Disorder: No Hx Respiratory Disorders: No Hx Cardiac Disorders: No Hx Psychiatric Problems: No Hx Miscellaneous Medical Probl: No Hx Alcohol Use: No Hx Substance Use: No Hx Tobacco Use: No Smoking Status: Never smoker Physical Exam Vitals Vital Signs Date Time Temp Pulse Resp B/P Pulse Ox O2 Delivery O2 Flow Rate FiO2 04/02/17 11:19 97.6 84 18 132/76 97 04/02/17 08:57 98.2 113 18 156/96 97 Physical Exam Const: Morbidly obese female in no acute distress. Nontoxic-appearing. Head: Atraumatic Eyes: Normal Conjunctiva ENT: Normal External Ears, Nose and Mouth. Neck: Full range of motion..~ No meningismus. Resp: Clear to auscultation bilaterally Cardio: Regular rate and rhythm, no murmurs Abd: Soft, non tender, non distended. Normal bowel sounds Skin: No petechiae or rashes Back: No midline tenderness. Right-sided flank tenderness to palpation. No CVA tenderness. Ext: No cyanosis, or edema Neur: Awake and alert Psych: Normal Mood and Affect Result Diagram: 04/02/17 1015 04/02/17 1015 Results 24 hrs Laboratory Tests Test 04/02/17 10:15 White Blood Count 11.510^3/ul Red Blood Count 5.2110^6/ul Hemoglobin 14.1g/dl Hematocrit 42.6% Mean Corpuscular Volume 81.8fl Mean Corpuscular Hemoglobin 27.1pg Mean Corpuscular Hemoglobin Concent 33.1g/dl Red Cell Distribution Width 14.5% Platelet Count 52374^3/UL Mean Platelet Volume 10.0fl Neutrophils % 65.6% Lymphocytes % 26.2% Monocytes % 5.0% Eosinophils % 2.3% Basophils % 0.6% Nucleated Red Blood Cells % 0.0/100WBC Neutrophils # 7.610^3/ul Lymphocytes # 3.010^3/ul Monocytes # 0.610^3/ul Eosinophils # 0.310^3/ul Basophils # 0.110^3/ul Nucleated Red Blood Cells # 0.010^3/ul Sodium Level 145mmol/L Potassium Level 4.0mmol/L Chloride Level 103mmol/L Carbon Dioxide Level 26mmol/L Anion Gap 20 Blood Urea Nitrogen 12mg/dl Creatinine 0.74mg/dl Glucose Level 159mg/dl Calcium Level 9.5mg/dl Current Medications Medications (Trade) Dose Ordered Sig/[place] Route PRN Reason Start Time Stop Time Status Last Admin Dose Admin Ketorolac Tromethamine (Toradol) 30 mg ONCE STAT IM 04/02/17 09:21 04/02/17 09:23 DC 04/02/17 10:26 Procedures/MDM 41-year-old female presents to the emergency department with complaints of increasing pain after she was diagnosed with a right-sided kidney stone 4 days ago. Physical examination is consistent with right-sided stone with findings of right-sided flank pain. CBC and BMP were within normal limits. Creatinine was not elevated and there was no signs of significant kidney involvement. I discussed this case with Dr. Orville Soares, who in light of the normal lab results, recommended the patient have close follow-up with her primary care physician and possibly a urologist. The patient understood the discharge plan of diagnosis. All questions and concerns were addressed. Departure Diagnosis: Primary Impression: Flank pain Condition: Fair Patient Instructions: Kidney Stone W/ Colic Additional Instructions: Follow up with your PCP within the next 1-3 days for a repeat evaluation. If you require a referral to a specialist, your Primary Care Provider may be able to provide this for you. In most patient cases, a referral is not required. If you have further questions regarding this matter, please ask your Primary Care Provider. Return the the emergency department immediately if symptoms worsen or change. If you have any questions regarding medications, ask your pharmacist or us before you leave. If any adverse reactions, occur while taking your medications, discontinue the treatment and return to the emergency department immediately. If any new or worsening symptoms, uncontrolled fevers, or other unexplained symptoms occur, return to the emergency department immediately. Take your medications as directed, and complete the entire course of treatment. ANDERSON DONOVAN PA-C Apr 02, 2017 14:40
== END 2017-04-02 11:18 | disposition home or self-care (01) ==
LOC: FTE 08:54
DX: R10.9 Unspecified abdominal pain (principal); E66.01 Morbid (severe) obesity due to excess calories; Z68.43 Body mass index [BMI] 50.0-59.9, adult
CPT/HCPCS: 36415; 80048; 85025; 96372; 99284; J1885

== ENCOUNTER 2017-08-24 08:36 | Inpatient (IN) | payer BC, MEDICAID ==
[~2017-08-24] VITALS: Ht 160 cm; Wt 133.5 kg
[~2017-08-24 08:36] MED LIST changes: +BUSP5TAB2 PO; -BUSP5TAB20 PO
[2017-08-24] MEDS ORDERED: KETOROLAC 30 MG INJ IV STA (09:05)
[2017-08-24] MEDS ORDERED: SOD CHLORIDE 0.9% 1,000 ML IV STA (09:05)
[2017-08-24] MEDS ORDERED: ONDANSETRON 4 MG INJ IV STA (09:05)
[2017-08-24 10:00] LABS: BASOPHILS % 0.3 % (0.0-2.0); EOSINOPHILS # 0.1 10^3/ul (0.0-0.5); EOSINOPHILS % 0.3 % (0.0-7.0); HEMATOCRIT 42.1 % (37.0-47.0); HEMOGLOBIN 13.9 g/dl (12.0-16.0); LYMPHOCYTES # 2.2 10^3/ul (0.8-2.9); MEAN CORPUSCULAR HEMOGLOBIN 26.7 pg (29.0-33.0); MEAN CORPUSCULAR VOLUME 80.8 fl (82.0-101.0); MEAN PLATELET VOLUME 10.2 fl (7.4-10.4); MONOCYTE # 0.6 10^3/ul (0.3-0.9); MONOCYTES % 3.8 % (0.0-11.0); NEUTROPHIL # 12.9 10^3/ul (1.6-7.5); NEUTROPHILS % 81.2 % (39.0-77.0); PLATELET COUNT 406 10^3/UL (140-415); RED BLOOD COUNT 5.21 10^6/ul (4.20-5.40); RED CELL DISTRIBUTION WIDTH 14.7 % (11.5-14.5); WHITE BLOOD COUNT 15.9 10^3/ul (4.8-10.8)
--- NOTE | 2017-08-24 10:19 | RADRPT ---
PROCEDURE: CT abdomen and pelvis without contrast. CLINICAL INDICATION: Abdominal pain with back pain and chills TECHNIQUE: CT scan of the abdomen and pelvis without contrast was performed on a [email or web address] CT scanner utilizing axial imaging from the lung bases through the pubis symphysis. The patient was sc anned without intravenous contrast. Sagittal and coronal reformatted images were made. The CTDIvol is 23.43 mGy and the DLP is 1628.56 mGycm. DICOM images are available. One of the following 3 dose reduction techniques were used during this CT examination: 1) Automated exposure control 2) Adjustment of the mA +/- kV according to patient size or 3) Use of iterative reconstruction technique COMPARISON: None. FINDINGS: The lung bases are clear. The heart size is normal. No pericardial or pleural effusion is present. The visualized liver is diffusely fatty infiltrated without focal lesions present. Mild hepatic enla rgement is noted which measures 22 cm in superior inferior dimensions. The gallbladder is normal. No evidence for intrahepatic or extrahepatic biliary ductal dilatation is noted. The visualized spleen is normal in size and attenuation. The visualized pancreas and bilateral adren al glands are normal. The bilateral kidneys demonstrate extensive calcifications of the bilateral me dullary pyramids most compatible with medullary nephrocalcinosis. Mild right hydroureteronephrosis i s present secondary to an obstructing right proximal ureteral calculus which measures 7 mm AP by 9 m m in transverse dimensions just beyond the right ureteropelvic junction. The remainder of the right ureter is normal. The left ureter is normal and no evidence for left hydroureteronephrosis is presen t. The visualized aorta is normal without evidence for vascular calcifications or aneurysmal dilatation . The visualized bowel is nonobstructive. Mild diverticulosis is present without evidence for acute di verticulitis or appendicitis. The visualized pelvis demonstrates a distended urinary bladder. The uterus and the bilateral adnexa are normal. No evidence for ascites or pneumoperitoneum is present. Degenerative changes are noted of the bilateral sacroiliac joints and the imaged spine 2 mm degenera tive retrolisthesis present of L5 on S1 . IMPRESSION: 1. Mild right hydroureteronephrosis secondary to an obstructing right proximal 7 mm AP by 9 mm leach sverse ureteral calculus. 2. Bilateral renal medullary calcifications compatible with nephrocalcinosis with medullary sponge [place], milk-alkali syndrome, renal tubular acidosis or other metabolic etiologies not significantly changed from prior CT. 3. Mild diffuse fatty infiltration and mild hepatomegaly 4. Mild diverticulosis without evidence for acute diverticulitis or appendicitis. 5. 2 mm degenerative retrolisthesis of L5 and S1 A call report was made to DESIREE Canales , ( DESIREE Leon in a procedure) at 08/24/2017 10:16:3 2 AM following the completion of the examination by the undersigned. RPTAT: H D C .Nafisa Bentley MD, MD Date Time Electronically viewed and signed by .Nafisa Bentley MD, MD on 08/24/2017 10:19 .C/
[2017-08-24 10:34] LABS: ALBUMIN 4.1 g/dl (3.3-4.9); ALBUMIN/GLOBULIN RATIO 1.05; BILIRUBIN,INDIRECT 0.2 mg/dl (0-1.1); BILIRUBIN,TOTAL 0.2 mg/dl (0.2-1.3); CALCIUM 9.6 mg/dl (8.4-10.2); CREATININE 0.81 mg/dl (0.44-1.00); POTASSIUM 4.1 mmol/L (3.5-5.1)
[2017-08-24 10:36] LABS: ADD UMIC YES; UR ASCORBIC ACID NEGATIVE (NEGATIVE); UR BACTERIA MODERATE /HPF (NONE SEEN); UR BILIRUBIN (Dip) NEGATIVE (NEGATIVE); UR BLOOD (Dip) 1+ mg/dL (NEGATIVE); UR CLARITY SLIGHTLY CLOUDY (CLEAR); UR COLOR YELLOW (YELLOW); UR GLUCOSE (Dip) NEGATIVE (NEGATIVE); UR KETONES (Dip) NEGATIVE (NEGATIVE); UR LEUKOCYTE ESTERASE (Dip) 2+ Leu/ul (NEGATIVE); UR MUCUS FEW /HPF (NONE SEEN); UR NITRITE (Dip) NEGATIVE (NEGATIVE); UR RBC 12 /HPF (0-5); UR SPECIFIC GRAVITY (Dip) 1.009 (1.003-1.030); UR SQUAMOUS EPITHELIAL CELL FEW /HPF (FEW); UR TOTAL PROTEIN (Dip) 1+ mg/dl (NEGATIVE); UR UROBILINOGEN (Dip) NEGATIVE (NEGATIVE)
--- NOTE | 2017-08-24 11:13 | ERD ---
ER Documentation Chief Complaint Chief Complaint Complains of back pain and chills x 3 days HPI 41-year-old female with a history of ureterolithiasis ambulatory to the ED complaining of a 2-3 day history of worsening right flank pain, dysuria, polyuria, fevers and chills. No relieving or exacerbating factors. Nausea but no abdominal pain vomiting or diarrhea. No chest pain, palpitations or shortness of breath. No skin rash. ROS All systems reviewed and are negative except as per history of present illness. Medications Home Meds Active Scripts Ciprofloxacin Hcl* (Ciprofloxacin Hcl*) 500 Mg Tablet, 500 MG PO BID for 7 Days , TAB Prov:KEKE TORRES PA-C 03/29/17 Ibuprofen* (Motrin*) 600 Mg Tab, 600 MG PO Q6, #30 TAB Prov:KEKE TORRES PA-C 03/29/17 Tramadol HCl (Tramadol HCl) 50 Mg Tablet, 50 MG PO Q6 Y for PAIN, #15 TAB Prov:KEKE TORRES PA-C 03/29/17 Cephalexin* (Keflex*) 500 Mg Capsule, 500 MG PO QID for 5 Days, CAP Prov:ORVILLE SOARES MD 12/15/16 Furosemide* (Lasix*) 40 Mg Tablet, 40 MG PO DAILY, #6 TAB Prov:ORVILLE SOARES MD 12/15/16 Naproxen* (Naprosyn*) 500 Mg Tablet, 500 MG PO BID Y for PAIN AND/OR INFLAMMATION, #30 TAB Prov:ORVILLE SOARES MD 12/15/16 Ondansetron (Ondansetron Odt) 4 Mg Tab.rapdis, 4 MG PO Q6H Y for NAUSEA AND/OR VOMITING, #10 TAB Prov:DARREN AVILEZ PA-C 08/04/16 Ciprofloxacin Hcl* (Ciprofloxacin Hcl*) 500 Mg Tablet, 500 MG PO BID for 7 Days , TAB Prov:DARREN AVILEZ PA-C 08/04/16 Cetirizine Hcl* (Zyrtec*) 10 Mg Capsule, 10 MG PO DAILY, #10 TAB.CHEW Prov:NORMAN EID NP 11/17/15 Dextromethorphan Hb-Promethazine Hcl (Promethazine DM Syrup) 180 Ml Syrup, 10 ML PO Q6 Y for COUGH for 10 Days, ML Prov:EIDNORMAN I. CIRCULATING PROCESS INSPECTOR 11/17/15 Cephalexin* (Keflex*) 500 Mg Capsule, 500 MG PO BID for 7 Days, CAP Prov:JOSE RIVERA. CIRCULATING PROCESS INSPECTOR 08/23/15 Ibuprofen* (Motrin*) 800 Mg Tab, 800 MG PO Q6H Y for PAIN AND OR ELEVATED TEMP, #30 TAB Prov:JOSE RIVERA CIRCULATING PROCESS INSPECTOR 08/23/15 Azithromycin* (Zithromax*) 250 Mg Tablet, 250 MG PO .ZPACK DIRECTED, #6 TAB TAKE 500 MG (2 TABS) THE FIRST DAY THEN 250 MG (1 TAB) DAYS 2-5 Prov:EIDNORMAN I. CIRCULATING PROCESS INSPECTOR 08/13/15 Ibuprofen* (Motrin*) 800 Mg Tab, 800 MG PO Q6H Y for PAIN AND OR ELEVATED TEMP, #30 TAB Prov:JOSE RIVERA. CIRCULATING PROCESS INSPECTOR 03/18/15 Fluticasone Propionate* (Flonase* Nasal) 50 Mcg/[place] - 16 Gm [place].susp, 1 SPRAY NASAL DAILY, #1 BOTTLE Prov:JOSE RIVERA NP 03/18/15 Sodium Chloride (Saline Nasal [place]) 45 Ml [place], 2 SPR NS Q2H Y for NASAL CONGESTION, #1 BOT Prov:JOSE RIVERA. CIRCULATING PROCESS INSPECTOR 03/18/15 Reported Medications Buspirone Hcl* (Buspirone Hcl*) 5 Mg Tablet, PO BID 07/31/12 Ranitidine Hcl (Zantac) 150 Mg Tablet, PO BID 07/31/12 Allergies Allergies: Coded Allergies: No Known Drug Allergy (Unverified Allergy, Unknown, 04/02/17) PMhx/Soc Reviewed in chart. As per HPI. History of Surgery: No Anesthesia Reaction: No Hx Neurological Disorder: No Hx Respiratory Disorders: No Hx Cardiac Disorders: No Hx Psychiatric Problems: No Hx Miscellaneous Medical Probl: Yes (Kidney Stones) Hx Alcohol Use: No Hx Substance Use: No Hx Tobacco Use: No Smoking Status: Never smoker FmHx No family history relevant to presenting complaint Physical Exam Vitals Vital Signs Date Time Temp Pulse Resp B/P Pulse Ox O2 Delivery O2 Flow Rate FiO2 08/24/17 13:56 97.6 95 16 137/79 99 Room Air 08/24/17 08:39 97.9 109 20 150/101 99 Physical Exam Const: Alert, moderate distress Head: Atraumatic Eyes: Normal Conjunctiva ENT: Normal External Ears, Nose and Mouth. Neck: Full range of motion. Resp: Clear to auscultation bilaterally Cardio: Regular rate and rhythm, no murmurs Abd: Soft, obese, non tender, non distended. Normal bowel sounds Skin: No petechiae or rashes Back: Right CVA tenderness Ext: No cyanosis, or edema Neur: Awake and alert Psych: Cooperative. Normal Mood and Affect Result Diagram: 08/24/1724 08/24/17901 Results 24 hrs Laboratory Tests Test 08/24/17 08:27 08/24/17 08:55 08/24/17 09:02 08/24/17 09:24 Serum HCG, Qualitative NEGATIVE Urine Color YELLOW Urine Clarity SLIGHTLY CLOUDY Urine pH 6.0 Urine Specific [place] 1.009 Urine Ketones NEGATIVEmg/dL Urine Nitrite NEGATIVEmg/dL Urine Bilirubin NEGATIVEmg/dL Urine Urobilinogen NEGATIVEmg/dL Urine Leukocyte Esterase 2+Juan Pablo/ul Urine Microscopic RBC 12/HPF Urine Microscopic WBC 106/HPF Urine Squamous Epithelial Cells FEW/HPF Urine Bacteria MODERATE/HPF Urine Mucus FEW/HPF Urine Hemoglobin 1+mg/dL Urine Glucose NEGATIVEmg/dL Urine Total Protein 1+mg/dl Sodium Level 142mmol/L Potassium Level 4.1mmol/L Chloride Level 105mmol/L Carbon Dioxide Level 23mmol/L Anion Gap 18 Blood Urea Nitrogen 14mg/dl Creatinine 0.81mg/dl Glucose Level 132mg/dl Calcium Level 9.6mg/dl Total Bilirubin 0.2mg/dl Direct Bilirubin 0.00mg/dl Indirect Bilirubin 0.2mg/dl Aspartate Amino Transf (AST/SGOT) 25IU/L Alanine Aminotransferase (ALT/SGPT) 32IU/L Alkaline Phosphatase 155IU/L Total Protein 8.0g/dl Albumin 4.1g/dl Globulin 3.90g/dl Albumin/Globulin Ratio 1.05 Lipase 65U/L White Blood Count 15.910^3/ul Red Blood Count 5.2110^6/ul Hemoglobin 13.9g/dl Hematocrit 42.1% Mean Corpuscular Volume 80.8fl Mean Corpuscular Hemoglobin 26.7pg Mean Corpuscular Hemoglobin Concent 33.0g/dl Red Cell Distribution Width 14.7% Platelet Count 99646^3/UL Mean Platelet Volume 10.2fl Neutrophils % 81.2% Lymphocytes % 14.0% Monocytes % 3.8% Eosinophils % 0.3% Basophils % 0.3% Nucleated Red Blood Cells % 0.0/100WBC Neutrophils # 12.910^3/ul Lymphocytes # 2.210^3/ul Monocytes # 0.610^3/ul Eosinophils # 0.110^3/ul Basophils # 0.010^3/ul Nucleated Red Blood Cells # 0.010^3/ul Current Medications Medications (Trade) Dose Ordered Sig/Arabella Route PRN Reason Start Time Stop Time Status Last Admin Dose Admin Sodium Chloride (NS) 1,000 ml @ 1,000 mls/hr Q1H STAT IV 08/24/17 09:05 08/24/17 10:04 DC 08/24/17 10:01 Ondansetron HCl (Zofran Inj) 4 mg ONCE STAT IV 08/24/17 09:05 08/24/17 09:07 DC 08/24/17 09:41 Ketorolac Tromethamine 30 mg 30 mg ONCE STAT IV 08/24/17 09:05 08/24/17 09:07 DC 08/24/17 09:41 Ceftriaxone Sodium 50 ml @ 100 mls/hr ONCE ONCE IVPB 08/24/17 14:00 08/24/17 14:29 DC 08/24/17 13:31 Ceftriaxone Sodium 500 mg/ Sodium Chloride 50 ml @ 100 mls/hr Q24H IVPB 08/25/17 13:30 Sodium Chloride (NS) 1,000 ml @ 125 mls/hr Q8H IV 08/24/17 14:00 08/24/17 14:31 Ondansetron HCl (Zofran Inj) 4 mg Q6H PRN IV NAUSEA AND/OR VOMITING 08/24/17 14:00 Ketorolac Tromethamine (Toradol) 30 mg Q6H PRN IV PAIN 08/24/17 14:00 08/27/17 13:59 08/24/17 16:40 Morphine Sulfate (morphine) 2 mg Q4H PRN IV pain 08/24/17 14:00 Docusate Sodium (Colace) 100 mg BID PO 08/24/17 15:00 Ondansetron HCl (Zofran Inj) 4 mg BRIDGE ORDER PRN IV NAUSEA AND/OR VOMITING 08/24/17 16:30 08/25/17 16:29 08/24/17 16:39 Acetaminophen (Tylenol Tab) 650 mg ER BRIDGE PRN PO MILD PAIN/FEVER 08/24/17 16:30 08/25/17 16:29 PROCEDURE: CT abdomen and pelvis without contrast. CLINICAL INDICATION: Abdominal pain with back pain and chills TECHNIQUE: CT scan of the abdomen and pelvis without contrast was performed on a [employer] CT scanner utilizing axial imaging from the lung bases through the pubis symphysis. The patient was scanned without intravenous contrast. Sagittal and coronal reformatted images were made. The CTDIvol is 23.43 mGy and the DLP is 1628.56 mGycm. DICOM images are available. One of the following 3 dose reduction techniques were used during this CT examination: 1) Automated exposure control 2) Adjustment of the mA +/- kV according to patient size or 3) Use of iterative reconstruction technique COMPARISON: None. FINDINGS: The lung bases are clear. The heart size is normal. No pericardial or pleural effusion is present. The visualized liver is diffusely fatty infiltrated without focal lesions present. Mild hepatic enlargement is noted which measures 22 cm in superior inferior dimensions. The gallbladder is normal. No evidence for intrahepatic or extrahepatic biliary ductal dilatation is noted. The visualized spleen is normal in size and attenuation. The visualized pancreas and bilateral adrenal glands are normal. The bilateral kidneys demonstrate extensive calcifications of the bilateral medullary pyramids most compatible with medullary nephrocalcinosis. Mild right hydroureteronephrosis is present secondary to an obstructing right proximal ureteral calculus which measures 7 mm AP by 9 mm in transverse dimensions just beyond the right ureteropelvic junction. The remainder of the right ureter is normal. The left ureter is normal and no evidence for left hydroureteronephrosis is present. The visualized aorta is normal without evidence for vascular calcifications or aneurysmal dilatation. The visualized bowel is nonobstructive. Mild diverticulosis is present without evidence for acute diverticulitis or appendicitis. The visualized pelvis demonstrates a distended urinary bladder. The uterus and the bilateral adnexa are normal. No evidence for ascites or pneumoperitoneum is present. Degenerative changes are noted of the bilateral sacroiliac joints and the imaged spine 2 mm degenerative retrolisthesis present of L5 on S1 . IMPRESSION: 1. Mild right hydroureteronephrosis secondary to an obstructing right proximal 7 mm AP by 9 mm transverse ureteral calculus. 2. Bilateral renal medullary calcifications compatible with nephrocalcinosis with medullary sponge kidney, milk-alkali syndrome, renal tubular acidosis or other metabolic etiologies not significantly changed from prior CT. 3. Mild diffuse fatty infiltration and mild hepatomegaly 4. Mild diverticulosis without evidence for acute diverticulitis or appendicitis. 5. 2 mm degenerative retrolisthesis of L5 and S1 A call report was made to DESIREE Canales , ( DESIREE Avilez in a procedure) at 08/24/2017 10:16:32 AM following the completion of the examination by the undersigned. RPTAT: H D C .Nafisa Bentley MD, MD Date Time Electronically viewed and signed by .Nafisa Bentley MD, MD on 08/24/2017 10: 19 .C/ Procedures/MDM DOCUMENTS REVIEWED: ED nurse, prior ED, prior records MEDICAL DECISION MAKIN-year-old female with a history of ureterolithiasis ambulatory to the ED complaining of a 2-3 day history of worsening right flank pain, dysuria, polyuria, fevers and chills. Patient with obstructive ureterolithiasis, hydronephrosis and pyelonephritis require admission for IV antibiotics, urologic consult, further evaluation and management. Counseled patient and family regarding diagnosis, diagnostic results and plan for admission. CALLS/CONSULTS: Time 11:45, PMD, Dr. Freeman, Recommends admission to hospitalist. CALLS/CONSULTS: Time 13:00, Dr. Zheng, Agrees with plan for med/surg admission. PATIENT CARE TRANSITIONED: Time: 13:10, Dr. Zheng. Departure Diagnosis: Primary Impression: Right flank pain Additional Impressions: Ureterolithiasis Pyelonephritis Hydronephrosis Hydronephrosis type: with renal calculous obstruction Qualified Code: N13.2 - Hydronephrosis with urinary obstruction due to renal calculus Condition: WOODY Gudino MD Aug 24, 2017 11:13
--- NOTE | 2017-08-24 13:50 | HP ---
Date/Time of Note Date/Time of Note DATE: 08/24/17 TIME: 13:24 Assessment/Plan VTE Prophylaxis VTE Prophylaxis Intervention: ambulation Assessment/Plan Assessment/Plan 41 yo F with a hx of recurrent kidney stones with R sided flank pain 1. Obstructive nephrolithiasis (6mm) with mild R sided hyronephrosis with UTI 2. Morbid obesity 3. Medullary nephrocalcinosis causing recurrent kidney stones PLAN: Patient states she has passed 6mm stone before without intervention abx / IVF / strain urine / urology consulted by ER doctor / pain control / urine culture Low andrea diet/ s/p counselling on diet and exercise Workup nephrocalcinosis with PTH , TSH, possible nephro consult Further interventions per clinical course and findings HPI/ROS Admit Date/Time Admit Date/Time Hx of Present Illness Is a very pleasant 41-year-old female who has been seen multiple times in this facility because of her history of recurrent kidney stones. She developed right -sided flank pain a few hours prior to presentation, however because of a history she knew that this was likely another kidney stone. She tried to go to the bathroom and see if her symptoms will resolve, but when symptoms did not improve she decided to come to the emergency room where it was confirmed that she had a 6 mm obstructing kidney stone. She states she has passed a 6 mm stone on her own before after refusing intervention and she is not sure she would want intervention at this time as well but she is willing to speak with the urologist. The pain is in her right flank region and does not radiate at this time it was relieved significantly by medication given in the emergency room. She has had no fever she denies chest pain or shortness of breath, she denies headaches chest pain or passing out episodes. ROS 12 point review if systems was done and pertinent findings are as noted. PMH/Family/Social Past Medical History recurrent kidney stones Past Surgical History Past Surgical Hx: no surgical history Family History Significant Family History: no pertinent family hx Social History Alcohol Use: none Smoking Status: Never smoker Drug Use: none Exam/Review of Systems Vital Signs Vitals Vital Signs Date Time Temp Pulse Resp B/P Pulse Ox O2 Delivery O2 Flow Rate FiO2 08/24/17 08:39 97.9 109 20 150/101 99 Exam Constitutional: alert, oriented, No distress Head: normocephalic Eyes: PERRL ENMT: mucosa pink and moist Neck: non-tender, supple Respiratory: clear to auscultation Cardiovascular: nl pulses, regular rate and rhythm Gastrointestinal: bowel sounds, soft Genitourinary - Female: CVA tenderness Extremities: normal pulses Neurological: No focal weakness Skin: No rash or lesions Labs Result Diagram: 08/24/1724 08/24/17 0902 Medications Medications Current Medications Ceftriaxone Sodium (Rocephin) 50 ml @ 100 mls/hr ONCE ONCE IVPB ; Start 08/24 at 14:00; Stop 08/24/17 at 14:29 Procedures Procedures Laboratory Tests Test 08/24/17 08:27 08/24/17 08:55 08/24/17 09:02 08/24/17 09:24 Serum HCG, Qualitative NEGATIVE Urine Color YELLOW Urine Clarity SLIGHTLY CLOUDY Urine pH 6.0 Urine Specific [place] 1.009 Urine Ketones NEGATIVEmg/dL Urine Nitrite NEGATIVEmg/dL Urine Bilirubin NEGATIVEmg/dL Urine Urobilinogen NEGATIVEmg/dL Urine Leukocyte Esterase 2+[place]/ul Urine Microscopic RBC 12/HPF Urine Microscopic WBC 106/HPF Urine Squamous Epithelial Cells FEW/HPF Urine Bacteria MODERATE/HPF Urine Mucus FEW/HPF Urine Hemoglobin 1+mg/dL Urine Glucose NEGATIVEmg/dL Urine Total Protein 1+mg/dl Sodium Level 142mmol/L Potassium Level 4.1mmol/L Chloride Level 105mmol/L Carbon Dioxide Level 23mmol/L Anion Gap 18 Blood Urea Nitrogen 14mg/dl Creatinine 0.81mg/dl Glucose Level 132mg/dl Calcium Level 9.6mg/dl Total Bilirubin 0.2mg/dl Direct Bilirubin 0.00mg/dl Indirect Bilirubin 0.2mg/dl Aspartate Amino Transf (AST/SGOT) 25IU/L Alanine Aminotransferase (ALT/SGPT) 32IU/L Alkaline Phosphatase 155IU/L Total Protein 8.0g/dl Albumin 4.1g/dl Globulin 3.90g/dl Albumin/Globulin Ratio 1.05 Lipase 65U/L White Blood Count 15.910^3/ul Red Blood Count 5.2110^6/ul Hemoglobin 13.9g/dl Hematocrit 42.1% Mean Corpuscular Volume 80.8fl Mean Corpuscular Hemoglobin 26.7pg Mean Corpuscular Hemoglobin Concent 33.0g/dl Red Cell Distribution Width 14.7% Platelet Count 27818^3/UL Mean Platelet Volume 10.2fl Neutrophils % 81.2% Lymphocytes % 14.0% Monocytes % 3.8% Eosinophils % 0.3% Basophils % 0.3% Nucleated Red Blood Cells % 0.0/100WBC Neutrophils # 12.910^3/ul Lymphocytes # 2.210^3/ul Monocytes # 0.610^3/ul Eosinophils # 0.110^3/ul Basophils # 0.010^3/ul Nucleated Red Blood Cells # 0.010^3/ul Current Medications Medications (Trade) Dose Ordered Sig/Aarbella Route PRN Reason Start Time Stop Time Status Last Admin Dose Admin Sodium Chloride (NS) 1,000 ml @ 1,000 mls/hr Q1H STAT IV 08/24/17 09:05 08/24/17 10:04 DC 08/24/17 10:01 1,000 MLS/HR Ondansetron HCl (Zofran Inj) 4 mg ONCE STAT IV 08/24/17 09:05 08/24/17 09:07 DC 08/24/17 09:41 4 MG Ketorolac Tromethamine 30 mg 30 mg ONCE STAT IV 08/24/17 09:05 08/24/17 09:07 DC 08/24/17 09:41 30 MG Ceftriaxone Sodium (Rocephin) 50 ml @ 100 mls/hr ONCE ONCE IVPB 08/24/17 14:00 08/24/17 14:29 PROCEDURE: CT Abdomen and Pelvis without contrast. CLINICAL INDICATION: Abdominal pain. TECHNIQUE: CT scan of the abdomen and pelvis without contrast was performed on a multidetector high-resolution CT scanner. The patient was scanned without intravenous contrast. Coronal and sagittal reformatted images were obtained from the axial source images. Images were reviewed on a high-resolution PACS workstation. One or more of the following dose reduction techniques were used: Automated exposure control, adjustment of the mA and/or kV according to patient size, use of iterative reconstruction technique. The total exam CTDI equals 20.18 mGy and the total exam DLP equals 1353.02 mGy-cm. COMPARISON: Correlation with ultrasound from the same day. FINDINGS: CT abdomen: The lung bases are clear. The heart size is normal, without pericardial thickening or effusion. The liver is enlarged measuring 22.6 cm and demonstrates diffusely decreased density without focal mass or intrahepatic biliary dilatation. The spleen is normal in size and homogeneous in density. The stomach is grossly unremarkable. The pancreas as visualized is normal. The gallbladder and biliary tree are unremarkable and there is no evidence for biliary dilatation. The adrenal glands are symmetric and normal. The bilateral renal medullary pyramids are calcified. A 6 mm calculus is present in the distal right ureter, just proximal to the ureterovesicular junction. There is associated mild right-sided hydroureteronephrosis. Suspect additional nonobstructive intrarenal calculi within the bilateral kidneys, difficult to discern secondary to medullary nephrocalcinosis. Otherwise, the kidneys are unremarkable. No mass lesion is seen. The aorta is of normal caliber. There is no retroperitoneal lymphadenopathy. The asim hepatis region is clear. The small bowel and mesentery, as visualized , are unremarkable. Scattered diverticula are present throughout the descending and sigmoid colon without evidence of diverticulitis. CT pelvis: The small bowel loops situated within the pelvis are unremarkable. A 2.3 cm fat density lesion is present in the right adnexal area. There are associated areas of soft tissue. No definite calcifications are seen. Otherwise, the pelvic organs are normal. The pelvic sidewalls and inguinal regions are clear. The sigmoid colon and rectum are unremarkable. The appendix is normal. No mass , lymphadenopathy, or free fluid is seen. No acute inflammation is seen. The surrounding osseous structures are unremarkable. No osteolytic or osteoblastic lesion is detected. IMPRESSION: 1. 6 mm obstructive calculus within the distal right ureter resulting in mild right-sided hydroureteronephrosis. 2. Bilateral diffusely calcified renal medullary pyramids, consistent with medullary nephrocalcinosis. This may be seen in the setting of medullary sponge kidney, milk-alkali syndrome, renal tubular acidosis, [place] syndrome, or hyperparathyroidism. Additional bilateral nonobstructive renal calculi are suspected but difficult to discern secondary to medullary nephrocalcinosis. 3. Diverticulosis without evidence of diverticulitis. 4. 2.3 cm right adnexal fat density lesion, likely representing a dermoid cyst. 5. Hepatic steatosis. RPTAT: JJ .Terrence Kaiser MD, MD Date Time Electronically viewed and signed by .Terrence Kaiser MD, MD on 03/29/2017 13:32 .A/ CC: KEKE TORRES PA-C RUTHANN LOPEZ Aug 24, 2017 13:34
[2017-08-24] MEDS ORDERED: morphine 2 MG INJ IV PRN (14:00)
[2017-08-24] MEDS ORDERED: CEFTRIAXONE 2 GM/50 ML (PMX) 50 ML IVPB ONE (14:00)
[2017-08-24] MEDS ORDERED: ONDANSETRON 4 MG INJ IV PRN ×2 (14:00→16:30)
[2017-08-24] MEDS: SOD CHLORIDE 0.9% 1,000 ML IV SCH ×2 (14:31→23:38)
[2017-08-24] MEDS: DOCUSATE SODIUM 100 MG CAP PO SCH ×2 (14:52→21:00)
[2017-08-24] MEDS ORDERED: ACETAMINOPHEN 325 MG TAB PO PRN (16:30)
[2017-08-24] MEDS: KETOROLAC 30 MG INJ IV PRN (16:40)
[2017-08-24 20:00] VITALS: BP 117/58; RESP 20
--- NOTE | 2017-08-24 20:20 | CONS ---
Date/Time of Note Date/Time of Note DATE: 08/24/17 TIME: 20:12 Assessment/Plan Assessment/Plan Chief Complaint/Hosp Course 41-year-old female with a history of medullary sponge kidney, bilateral kidney stones, history of extra corporeal shockwave lithotripsy in 2007, presented to the emergency room was right flank pain and the CT scan showed a 6 mm stone in the upper ureter. The patient states that she did pass a 6 mm stone before. She never had any workup for her kidney stones and has not been on any medications to prevent kidney stones. At the present we will obtain a KUB, strain the urine for stones, give her pain medications, put her on Flomax and further recommendation will depend on her clinical condition and whether the stone moves down or not. Problems: Consultation Date/Type/Reason Admit Date/Time Date of Consultation: Aug 24, 2017 Type of Consultation: Urology Reason for Consultation Right upper ureteral stone with obstruction and bilateral renal stones, medullary sponge kidney Referring Provider: RUTHANN LOPEZ Hx of Present Illness 41-year-old female known to have medullary sponge kidney and kidney stones presented to the emergency room with right flank pain. CT scan of the abdomen and pelvis was done and it showed: 1. Mild right hydroureteronephrosis secondary to an obstructing right proximal 7 mm AP by 9 mm transverse ureteral calculus. 2. Bilateral renal medullary calcifications compatible with nephrocalcinosis with medullary sponge kidney, milk-alkali syndrome, renal tubular acidosis or other metabolic etiologies, not significantly changed from prior CT. 3. Mild diffuse fatty infiltration and mild hepatomegaly 4. Mild diverticulosis without evidence for acute diverticulitis or appendicitis. 5. 2 mm degenerative retrolisthesis of L5 and S1 owed: The patient just had pain medications and at the present she is comfortable Constitutional: no complaints Eyes: no complaints ENT: no complaints Respiratory: no complaints Cardiovascular: no complaints Gastrointestinal: no complaints Genitourinary: flank pain Musculoskeletal: no complaints Skin: no complaints Neurologic: no complaints Past Medical History Medical History: other (Medullary sponge kidney was kidney stones. Patient passed a kidney stone about 2-3 months ago, obesity) Past Surgical History Past Surgical Hx: other (In 2007 she underwent extracorporeal shockwave lithotripsy to a kidney stone) Social History Alcohol Use: none Smoking Status: Never smoker Drug Use: none Exam/Review of Systems Vital Signs Vitals Vital Signs Date Time Temp Pulse Resp B/P Pulse Ox O2 Delivery O2 Flow Rate FiO2 08/24/17 13:56 97.6 95 16 137/79 99 Room Air Exam Constitutional: alert, oriented Psych: no complaints Head: normocephalic ENMT: nl external ears & nose Neck: supple Respiratory: normal air movement Cardiovascular: No jugular venous distention (JVD) Gastrointestinal: soft Genitourinary - Female: CVA tenderness (Right side) Musculoskeletal: nl extremities to inspection Extremities: normal pulses Results Result Diagram: 08/24/1724 08/24/1702 Results 24 hrs Laboratory Tests Test 08/24/17 08:27 08/24/17 08:55 08/24/17 09:02 08/24/17 09:24 Serum HCG, Qualitative NEGATIVE Urine Color YELLOW Urine Clarity SLIGHTLY CLOUDY A Urine pH 6.0 Urine Specific [place] 1.009 Urine Ketones NEGATIVE Urine Nitrite NEGATIVE Urine Bilirubin NEGATIVE Urine Urobilinogen NEGATIVE Urine Leukocyte Esterase 2+ H Urine Microscopic RBC 12 H Urine Microscopic WBC 106 H Urine Squamous Epithelial Cells FEW Urine Bacteria MODERATE Urine Mucus FEW A Urine Hemoglobin 1+ H Urine Glucose NEGATIVE Urine Total Protein 1+ H Sodium Level 142 Potassium Level 4.1 Chloride Level 105 Carbon Dioxide Level 23 Anion Gap 18 H Blood Urea Nitrogen 14 Creatinine 0.81 Glucose Level 132 Calcium Level 9.6 Total Bilirubin 0.2 Direct Bilirubin 0.00 Indirect Bilirubin 0.2 Aspartate Amino Transf (AST/SGOT) 25 Alanine Aminotransferase (ALT/SGPT) 32 Alkaline Phosphatase 155 H Total Protein 8.0 Albumin 4.1 Globulin 3.90 H Albumin/Globulin Ratio 1.05 Lipase 65 White Blood Count 15.9 #H Red Blood Count 5.21 Hemoglobin 13.9 Hematocrit 42.1 Mean Corpuscular Volume 80.8 L Mean Corpuscular Hemoglobin 26.7 L Mean Corpuscular Hemoglobin Concent 33.0 Red Cell Distribution Width 14.7 H Platelet Count 406 Mean Platelet Volume 10.2 Neutrophils % 81.2 H Lymphocytes % 14.0 L Monocytes % 3.8 Eosinophils % 0.3 Basophils % 0.3 Nucleated Red Blood Cells % 0.0 Neutrophils # 12.9 H Lymphocytes # 2.2 Monocytes # 0.6 Eosinophils # 0.1 Basophils # 0.0 Nucleated Red Blood Cells # 0.0 Imaging Free Text/Dictation CT scan of abdomen and pelvis: 1. Mild right hydroureteronephrosis secondary to an obstructing right proximal 7 mm AP by 9 mm transverse ureteral calculus. 2. Bilateral renal medullary calcifications compatible with nephrocalcinosis with medullary sponge kidney, milk-alkali syndrome, renal tubular acidosis or other metabolic etiologies not significantly changed from prior CT. 3. Mild diffuse fatty infiltration and mild hepatomegaly 4. Mild diverticulosis without evidence for acute diverticulitis or appendicitis. 5. 2 mm degenerative retrolisthesis of L5 and S1 Medications Medications Current Medications Ceftriaxone Sodium 500 mg/ Sodium Chloride 50 ml @ 100 mls/hr Q24H IVPB ; Start 08/25/17 at 13:30 Sodium Chloride (NS) 1,000 ml @ 125 mls/hr Q8H IV Last administered on 14:31; Admin Dose 125 MLS/HR; Start 08/24/17 at 14:00 Ondansetron HCl (Zofran Inj) 4 mg Q6H PRN IV NAUSEA AND/OR VOMITING; Start at 14:00 Ketorolac Tromethamine (Toradol) 30 mg Q6H PRN IV PAIN Last administered on 16:40; Admin Dose 30 MG; Start 08/24/17 at 14:00; Stop 08/27/17 at 13: 59 Morphine Sulfate (morphine) 2 mg Q4H PRN IV pain; Start 08/24/17 at 14:00 Docusate Sodium (Colace) 100 mg BID PO ; Start 08/24/17 at 15:00 JAMAL GAMBOA MD Aug 24, 2017 20:20
[2017-08-24 22:58] VITALS: PULSE 98; TEMP 98.2
[2017-08-24 23:30] VITALS: Ht 160 cm; Wt 133.5 kg
[2017-08-25 02:00] VITALS: BP 115/59; RESP 20
[2017-08-25] MEDS: KETOROLAC 30 MG INJ IV PRN (05:19)
[2017-08-25 06:34] LABS: BASOPHIL # 0.1 10^3/ul (0.0-0.1); BASOPHILS % 0.4 % (0.0-2.0); EOSINOPHILS # 0.2 10^3/ul (0.0-0.5); EOSINOPHILS % 1.6 % (0.0-7.0); HEMATOCRIT 38.1 % (37.0-47.0); HEMOGLOBIN 12.7 g/dl (12.0-16.0); LYMPHOCYTES # 3.1 10^3/ul (0.8-2.9); LYMPHOCYTES % 24.8 % (15.0-51.0); MEAN CORPUSCULAR HEMOGLOBIN 27.2 pg (29.0-33.0); MEAN CORPUSCULAR HGB CONC 33.3 g/dl (32.0-37.0); MEAN CORPUSCULAR VOLUME 81.6 fl (82.0-101.0); MONOCYTE # 0.6 10^3/ul (0.3-0.9); MONOCYTES % 5.1 % (0.0-11.0); NEUTROPHIL # 8.5 10^3/ul (1.6-7.5); NEUTROPHILS % 67.8 % (39.0-77.0); PLATELET COUNT 349 10^3/UL (140-415); RED BLOOD COUNT 4.67 10^6/ul (4.20-5.40); RED CELL DISTRIBUTION WIDTH 14.9 % (11.5-14.5); WHITE BLOOD COUNT 12.5 10^3/ul (4.8-10.8)
[2017-08-25] MEDS: SOD CHLORIDE 0.9% 1,000 ML IV SCH ×4 (06:59→23:02)
[2017-08-25 07:01] LABS: CALCIUM 8.9 mg/dl (8.4-10.2); CREATININE 0.73 mg/dl (0.44-1.00); MAGNESIUM 1.9 mg/dl (1.7-2.5); POTASSIUM 4.3 mmol/L (3.5-5.1)
[2017-08-25 07:29] LABS: THYROID STIMULATING HORMONE 1.78 MIU/L (0.465-4.680)
[2017-08-25 08:07] VITALS: BP 117/58; RESP 20
[2017-08-25] MEDS: DOCUSATE SODIUM 100 MG CAP PO SCH ×2 (08:41→20:38)
--- NOTE | 2017-08-25 10:02 | CONS ---
Date/Time of Note Date/Time of Note DATE: 08/25/17 TIME: 09:57 Assessment/Plan Assessment/Plan Problems: (1) Kidney stones Status: Acute Comment: I am in agreement with Dr. Pang the urologist. She has not had a formalized evaluation for recurrent renal stones which would be appropriate. We will do the 24-hour urine for creatinine clearance and calcium and oxalate. In addition we will check her serum magnesium ionized calcium PTH levels. May allow us to then come up with a regimen to decrease the risk of recurrent renal stones. (2) Medullary sponge kidney of both kidneys Status: Chronic Comment: The nephrocalcinosis she has is a calm sequence of the medullary sponge kidneys. We will check what her renal function status is like at this time. (3) Morbid obesity with BMI of 50.0-59.9, adult Status: Chronic Comment: Check for hypercortisolism although I doubt that this is actually a true diagnosis Consultation Date/Type/Reason Admit Date/Time Date of Consultation: Aug 25, 2017 Type of Consultation: Endocrinology Reason for Consultation Medullary sponge kidney with nephrocalcinosis; recurrent renal stone disease Referring Provider: RUTHANN LOPEZ Hx of Present Illness 41-year-old single female with a history of renal stone disease. She had an obstructing renal stone 2007 and underwent extracorporeal shockwave lithotripsy by urologist whose name she does not recall. She has never had any type of evaluation does not recall ever having done 24 urinary collections. She does not recall ever having told of an abnormal level calcium in the bloodstream. There is no family history of calcium disturbances and as far she knows she has never had a family member with medullary sponge kidney. 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 Patient passed a kidney stone about 2-3 months ago, obesity; Ab2) Past Surgical History Past Surgical Hx: other (; Status post D&C 2) Family History Significant Family History: diabetes Social History Alcohol Use: none Smoking Status: Never smoker Drug Use: none Exam/Review of Systems Vital Signs Vitals Vital Signs Date Time Temp Pulse Resp B/P Pulse Ox O2 Delivery O2 Flow Rate FiO2 08/25/17 08:07 98.1 84 20 117/58 98 08/24/17 22:58 Room Air Intake and Output 08/24/17 08/24/17 08/25/17 15:00 23:00 07:00 Intake Total 1250 ml Output Total 600 ml Balance 650 ml Exam Constitutional: alert, oriented Head: atraumatic, normocephalic Eyes: EOMI, PERRL, nl conjunctiva, nl lids, nl sclera ENMT: mucosa pink and moist, nl external ears & nose, nl lips & teeth, nl nasal mucosa & septum Neck: non-tender, supple Respiratory: clear to auscultation, normal air movement Cardiovascular: nl pulses, regular rate and rhythm Gastrointestinal: nl liver, spleen, non-tender, soft Extremities: normal pulses Neurological: CHANNEL SUPERVISOR II-XII intact, nl mental status, nl speech, nl strength Results Result Diagram: 08/25/17 0530 08/25/17 0530 Results 24 hrs Laboratory Tests Test 08/25/17 05:30 White Blood Count 12.5 #H Red Blood Count 4.67 Hemoglobin 12.7 Hematocrit 38.1 Mean Corpuscular Volume 81.6 L Mean Corpuscular Hemoglobin 27.2 L Mean Corpuscular Hemoglobin Concent 33.3 Red Cell Distribution Width 14.9 H Platelet Count 349 Mean Platelet Volume 10.0 Neutrophils % 67.8 Lymphocytes % 24.8 Monocytes % 5.1 Eosinophils % 1.6 Basophils % 0.4 Nucleated Red Blood Cells % 0.0 Neutrophils # 8.5 H Lymphocytes # 3.1 H Monocytes # 0.6 Eosinophils # 0.2 Basophils # 0.1 Nucleated Red Blood Cells # 0.0 Sodium Level 141 Potassium Level 4.3 Chloride Level 107 Carbon Dioxide Level 23 Anion Gap 15 Blood Urea Nitrogen 13 Creatinine 0.73 Glucose Level 119 Calcium Level 8.9 Magnesium Level 1.9 Thyroid Stimulating Hormone (TSH) 1.780 Medications Medications Current Medications Ceftriaxone Sodium 500 mg/ Sodium Chloride 50 ml @ 100 mls/hr Q24H IVPB ; Start 08/25/17 at 13:30 Sodium Chloride (NS) 1,000 ml @ 125 mls/hr Q8H IV Last administered on 06:59; Admin Dose 125 MLS/HR; Start 08/24/17 at 14:00 Ondansetron HCl (Zofran Inj) 4 mg Q6H PRN IV NAUSEA AND/OR VOMITING Last administered on 08/25/17 05:20; Admin Dose 4 MG; Start 08/24/17 at 14:00 Ketorolac Tromethamine (Toradol) 30 mg Q6H PRN IV PAIN Last administered on 05:19; Admin Dose 30 MG; Start 08/24/17 at 14:00; Stop 08/27/17 at 13: 59 Morphine Sulfate (morphine) 2 mg Q4H PRN IV pain; Start 08/24/17 at 14:00 Docusate Sodium (Colace) 100 mg BID PO ; Start 08/24/17 at 15:00 KWAME CLEMONS MD Aug 25, 2017 10:02
--- NOTE | 2017-08-25 13:09 | PN ---
Date/Time of Note Date/Time of Note DATE: 08/25/17 TIME: 13:08 Assessment/Plan VTE Prophylaxis VTE Prophylaxis Intervention: SCD's Lines/Catheters IV Catheter Type (from [facility]): Peripheral IV Urinary Cath still in place: No Assessment/Plan Chief Complaint/Hosp Course 1. Right hydronephrosis secondary to obstructing renal stone. -Continue IV hydration. -Continue empiric antibiotics. -Continue pain control. -Being followed by urology. 2. Medullary nephrocalcinosis causing recurrent nephrolithiasis. -Continue urology recommendations. 3. Urinary tract infection. -Continue antimicrobials. 4. Morbid obesity. BMI of 52.1 kg/m. -Endocrinology follow-up. 5. Fluids, electrolytes, and nutrition. -Calorie controlled diet. 6. DVT prophylaxis. -Bilateral SCDs. 7. Plan. -Continue pain control. -Continue IV hydration. -Await further recommendations from consultants. Case discussed with Dr. Mccauley. Problems: Subjective 24 Hr Interval Summary Free Text/Dictation Right flank pain well controlled with analgesics. Exam/Review of Systems Vital Signs Vitals Vital Signs Date Time Temp Pulse Resp B/P Pulse Ox O2 Delivery O2 Flow Rate FiO2 08/25/17 08:07 98.1 84 20 117/58 98 08/24/17 22:58 Room Air Intake and Output 08/24/17 08/24/17 08/25/17 15:00 23:00 07:00 Intake Total 1250 ml Output Total 600 ml Balance 650 ml Exam General: Morbidly obese 41 year-old female lying in bed in no apparent distress. HEENT: Normocephalic, atraumatic. Eyes: Anicteric sclerae, conjunctivae clear. ENT: Nasal septum midline, oral mucosa moist. Neck supple, no JVD noticed. Respiratory: Bilaterally clear breath sounds. No use of accessory muscles of respiration. No adventitious breath sounds. Cardiovascular: S1, S2 heard. No murmurs or gallops. Abdomen: Soft, nontender, and nondistended. Bowel sounds positive in all 4 quadrants. Genitourinary: Right CVA tenderness. Extremities: No cyanosis, no clubbing, no edema. Peripheral pulses palpable. Neurologic: Cranial nerves II through XII grossly intact. The patient is awake, alert, and oriented. Skin: Normal skin turgor. No skin rashes. Results Result Diagram: 08/25/17 0530 08/25/17 0530 Results 24 hrs Laboratory Tests Test 08/25/17 05:30 08/25/17 08:55 White Blood Count 12.5 #H Red Blood Count 4.67 Hemoglobin 12.7 Hematocrit 38.1 Mean Corpuscular Volume 81.6 L Mean Corpuscular Hemoglobin 27.2 L Mean Corpuscular Hemoglobin Concent 33.3 Red Cell Distribution Width 14.9 H Platelet Count 349 Mean Platelet Volume 10.0 Neutrophils % 67.8 Lymphocytes % 24.8 Monocytes % 5.1 Eosinophils % 1.6 Basophils % 0.4 Nucleated Red Blood Cells % 0.0 Neutrophils # 8.5 H Lymphocytes # 3.1 H Monocytes # 0.6 Eosinophils # 0.2 Basophils # 0.1 Nucleated Red Blood Cells # 0.0 Sodium Level 141 Potassium Level 4.3 Chloride Level 107 Carbon Dioxide Level 23 Anion Gap 15 Blood Urea Nitrogen 13 Creatinine 0.73 Glucose Level 119 Calcium Level 8.9 Magnesium Level 1.9 Thyroid Stimulating Hormone (TSH) 1.780 Ionized Calcium (Measured) 1.3 Parathyroid Hormone (Intact) Medications Medications Current Medications Ceftriaxone Sodium 500 mg/ Sodium Chloride 50 ml @ 100 mls/hr Q24H IVPB ; Start 08/25/17 at 13:30 Sodium Chloride (NS) 1,000 ml @ 125 mls/hr Q8H IV Last administered on 06:59; Admin Dose 125 MLS/HR; Start 08/24/17 at 14:00 Ondansetron HCl (Zofran Inj) 4 mg Q6H PRN IV NAUSEA AND/OR VOMITING Last administered on 08/25/17 05:20; Admin Dose 4 MG; Start 08/24/17 at 14:00 Ketorolac Tromethamine (Toradol) 30 mg Q6H PRN IV PAIN Last administered on 05:19; Admin Dose 30 MG; Start 08/24/17 at 14:00; Stop 08/27/17 at 13: 59 Morphine Sulfate (morphine) 2 mg Q4H PRN IV pain; Start 08/24/17 at 14:00 Docusate Sodium (Colace) 100 mg BID PO ; Start 08/24/17 at 15:00 Dexamethasone (Decadron) 1 mg ONCE ONCE PO ; Start 08/25/17 at 23:15; Stop at 23:16 TARIQ CALDERA NP Aug 25, 2017 13:09 TARIQ CALDERA NP Aug 25, 2017 13:09
[2017-08-25] MEDS: CEFTRIAXONE 500 MG in SOD CHLORIDE 0.9% 50 ML IVPB SCH ×2 (13:30→16:39)
[2017-08-25 14:49] VITALS: BP 129/69; RESP 20
--- NOTE | 2017-08-25 15:07 | RADRPT ---
PROCEDURE: XR Abdomen. CLINICAL INDICATION: Kidney stones. TECHNIQUE: AP abdomen x-ray. COMPARISON: CT abdomen 08/24/2017 FINDINGS: Multiple calcifications over the renal shadows. Largest calcification on the right measures 8 mm. La rgest calcification on the left measures 8 mm.. The bowel gas pattern is normal. There is no evidenc e of obstruction. Normal colonic stool burden. IMPRESSION: Multiple calcifications over the renal shadows. This was better visualized on noncontrast abdominal CT performed yesterday. RPTAT:AAJJ Physician Darryl Date Time Electronically viewed and signed by Physician Darryl on 08/25/2017 15:06 /
--- NOTE | 2017-08-25 15:14 | CONS ---
Date/Time of Note Date/Time of Note DATE: 08/25/17 TIME: 15:11 Consult Date/Type/Reason Admit Date/Time Aug 24, 2017 at 16:27 Initial Consult Date 08/25/17 Type of Consultation: Urology Reason for Consultation Right upper ureteral stone and bilateral kidney stones Ordering Provider: RUTHANN LOPEZ Subjective Patient stated that she is feeling better when she gets the Toradol and she denies any nausea at the present she is getting Zofran IV. No flank pain at the present Objective Vital Signs Date Time Temp Pulse Resp B/P Pulse Ox O2 Delivery O2 Flow Rate FiO2 08/25/17 14:49 98.0 85 20 129/69 98 08/24/17 22:58 Room Air Intake and Output 08/24/17 08/24/17 08/25/17 15:00 23:00 07:00 Intake Total 1250 ml Output Total 600 ml Balance 650 ml Exam Alert, awake and not in acute distress. Right flank tenderness. KUB showed the stone in the upper right ureter at the level of L3 also which showed the stones over lying the left kidney. Results/Medications Result Diagram: 08/25/17 0530 08/25/17 0530 Results 24 hrs Laboratory Tests Test 08/25/17 05:30 08/25/17 08:55 White Blood Count 12.5 #H Red Blood Count 4.67 Hemoglobin 12.7 Hematocrit 38.1 Mean Corpuscular Volume 81.6 L Mean Corpuscular Hemoglobin 27.2 L Mean Corpuscular Hemoglobin Concent 33.3 Red Cell Distribution Width 14.9 H Platelet Count 349 Mean Platelet Volume 10.0 Neutrophils % 67.8 Lymphocytes % 24.8 Monocytes % 5.1 Eosinophils % 1.6 Basophils % 0.4 Nucleated Red Blood Cells % 0.0 Neutrophils # 8.5 H Lymphocytes # 3.1 H Monocytes # 0.6 Eosinophils # 0.2 Basophils # 0.1 Nucleated Red Blood Cells # 0.0 Sodium Level 141 Potassium Level 4.3 Chloride Level 107 Carbon Dioxide Level 23 Anion Gap 15 Blood Urea Nitrogen 13 Creatinine 0.73 Glucose Level 119 Calcium Level 8.9 Magnesium Level 1.9 Thyroid Stimulating Hormone (TSH) 1.780 Hepatitis B Surface Antigen NEGATIVE Hepatitis B Surface Antibody NEGATIVE Hepatitis C Antibody NEGATIVE Ionized Calcium (Measured) 1.3 Parathyroid Hormone (Intact) Medications Current Medications Ceftriaxone Sodium 500 mg/ Sodium Chloride 50 ml @ 100 mls/hr Q24H IVPB ; Start 08/25/17 at 13:30 Sodium Chloride (NS) 1,000 ml @ 125 mls/hr Q8H IV Last administered on 14:43; Admin Dose 125 MLS/HR; Start 08/24/17 at 14:00 Ondansetron HCl (Zofran Inj) 4 mg Q6H PRN IV NAUSEA AND/OR VOMITING Last administered on 08/25/17 05:20; Admin Dose 4 MG; Start 08/24/17 at 14:00 Ketorolac Tromethamine (Toradol) 30 mg Q6H PRN IV PAIN Last administered on 05:19; Admin Dose 30 MG; Start 08/24/17 at 14:00; Stop 08/27/17 at 13: 59 Morphine Sulfate (morphine) 2 mg Q4H PRN IV pain; Start 08/24/17 at 14:00 Docusate Sodium (Colace) 100 mg BID PO ; Start 08/24/17 at 15:00 Dexamethasone (Decadron) 1 mg ONCE ONCE PO ; Start 08/25/17 at 23:15; Stop at 23:16 Assessment/Plan Chief Complaint/Hosp Course 41-year-old female with a history of medullary sponge kidney, bilateral kidney stones, history of extra corporeal shockwave lithotripsy in 2007, presented to the emergency room was right flank pain and the CT scan showed a 6 mm stone in the upper ureter. The patient states that she did pass a 6 mm stone before. KUB today showed the 6 mm stone in the upper ureter, unchanged in position since yesterday. Will repeat the KUB tomorrow and see if the stone is moving, continue to strain her urine and put on Flomax and antibiotic Problems: JAMAL GAMBOA MD Aug 25, 2017 15:14
[2017-08-25 20:00] VITALS: BP 145/64; RESP 18
[2017-08-25] MEDS: TAMSULOSIN (SR) 0.4 MG CAP PO SCH (20:40)
[2017-08-25] MEDS ORDERED: DEXAMETHASONE 1 MG TAB PO ONE (23:15)
[2017-08-26 02:00] VITALS: BP 132/75; RESP 19
[2017-08-26 05:43] LABS: BASOPHILS % 0.3 % (0.0-2.0); EOSINOPHILS # 0.1 10^3/ul (0.0-0.5); EOSINOPHILS % 0.6 % (0.0-7.0); HEMATOCRIT 41.1 % (37.0-47.0); HEMOGLOBIN 13.2 g/dl (12.0-16.0); LYMPHOCYTES # 1.9 10^3/ul (0.8-2.9); LYMPHOCYTES % 14.8 % (15.0-51.0); MEAN CORPUSCULAR HEMOGLOBIN 26.5 pg (29.0-33.0); MEAN CORPUSCULAR HGB CONC 32.1 g/dl (32.0-37.0); MEAN CORPUSCULAR VOLUME 82.5 fl (82.0-101.0); MEAN PLATELET VOLUME 9.9 fl (7.4-10.4); MONOCYTE # 0.4 10^3/ul (0.3-0.9); MONOCYTES % 2.9 % (0.0-11.0); NEUTROPHIL # 10.3 10^3/ul (1.6-7.5); PLATELET COUNT 376 10^3/UL (140-415); RED BLOOD COUNT 4.98 10^6/ul (4.20-5.40); RED CELL DISTRIBUTION WIDTH 14.3 % (11.5-14.5); WHITE BLOOD COUNT 12.7 10^3/ul (4.8-10.8)
[2017-08-26 06:15] LABS: CHOL/HDL RATIO 5.6 RATIO; PHOSPHORUS 2.8 mg/dl (2.5-4.9)
[2017-08-26 06:30] LABS: CALCIUM 9.3 mg/dl (8.4-10.2); CREATININE 0.72 mg/dl (0.44-1.00); POTASSIUM 4.8 mmol/L (3.5-5.1)
[2017-08-26] MEDS: SOD CHLORIDE 0.9% 1,000 ML IV SCH ×2 (07:39→16:37)
[2017-08-26 08:01] VITALS: BP 141/103; RESP 18
[2017-08-26] MEDS: DOCUSATE SODIUM 100 MG CAP PO SCH ×2 (08:46→20:34)
--- NOTE | 2017-08-26 09:22 | RADRPT ---
PROCEDURE: XR Abdomen. CLINICAL INDICATION: nephrolithiasis TECHNIQUE: AP abdomen x-ray. COMPARISON: 08/25/[address] abdomen and pelvis 08/24/2017 FINDINGS: There are multiple bilateral renal calculi measuring up to 8 mm unchanged since prior exam. No defin ite ureteral stone is identified. Right proximal ureteral calculus described on prior CT scan is les s well visualized on current exam. Bowel gas pattern is unremarkable. No evidence of bowel dilatatio n, obstruction, free air.. The osseous structures are unremarkable. IMPRESSION: Bilateral renal calculi. Right proximal ureteral stone seen on prior CT scan less well visualized on current exam. RPTAT: QQ .Parish Kaufman MD, Date Time Electronically viewed and signed by .Parish Kaufman MD, on 08/26/2017 09:21 .L/
--- NOTE | 2017-08-26 10:53 | PN ---
Date/Time of Note Date/Time of Note DATE: 08/26/17 TIME: 10:53 Exam/Review of Systems Vital Signs Vitals Results Result Diagram: 08/26/17 0513 08/26/17 05 Results 24 hrs Medications Medications TARIQ CALDERA NP Aug 26, 2017 10:53 -Endocrinology follow-up. 5. Pre-diabetes. -A1C 6.2. -Management as per Endocrinology. 6. Fluids, electrolytes, and nutrition. -Calorie controlled diet. 7. DVT prophylaxis. -Bilateral SCDs. 8. Plan. -Continue pain control. -Continue IV hydration. -Await further recommendations from consultants. Case discussed with Dr. Mccauley. Problems: Exam/Review of Systems Vital Signs Vitals Vital Signs Date Time Temp Pulse Resp B/P Pulse Ox O2 Delivery O2 Flow Rate FiO2 08/26/17 08:01 98.4 88 18 141/103 99 08/24/17 22:58 Room Air Intake and Output 08/25/17 08/25/17 08/26/17 15:00 23:00 07:00 Intake Total 950 ml 1960 ml 2350 ml Output Total 1675 ml Balance 950 ml 285 ml 2350 ml Results Result Diagram: 08/26/17 0513 08/26/17 0512 Results 24 hrs Laboratory Tests Test 08/26/17 05:12 08/26/17 05:13 Sodium Level 140 Potassium Level 4.8 Chloride Level 104 Carbon Dioxide Level 24 Anion Gap 17 H Blood Urea Nitrogen 12 Creatinine 0.72 Glucose Level 137 Hemoglobin A1c 6.2 H Calcium Level 9.3 Magnesium Level 2.0 Random Cortisol 1.6 White Blood Count 12.7 H Red Blood Count 4.98 Hemoglobin 13.2 Hematocrit 41.1 Mean Corpuscular Volume 82.5 Mean Corpuscular Hemoglobin 26.5 L Mean Corpuscular Hemoglobin Concent 32.1 Red Cell Distribution Width 14.3 Platelet Count 376 Mean Platelet Volume 9.9 Neutrophils % 81.0 H Lymphocytes % 14.8 L Monocytes % 2.9 Eosinophils % 0.6 Basophils % 0.3 Nucleated Red Blood Cells % 0.0 Neutrophils # 10.3 H Lymphocytes # 1.9 Monocytes # 0.4 Eosinophils # 0.1 Basophils # 0.0 Nucleated Red Blood Cells # 0.0 Phosphorus Level 2.8 Triglycerides Level 93 Cholesterol Level 168 LDL Cholesterol, Calculated 119 HDL Cholesterol 30 L Cholesterol/HDL Ratio 5.6 Medications Medications Current Medications Ceftriaxone Sodium 500 mg/ Sodium Chloride 50 ml @ 100 mls/hr Q24H IVPB Last administered on 08/25/17 16:39; Admin Dose 100 MLS/HR; Start 08/25/17 at 13: 30 Sodium Chloride (NS) 1,000 ml @ 125 mls/hr Q8H IV Last administered on 07:39; Admin Dose 125 MLS/HR; Start 08/24/17 at 14:00 Ondansetron HCl (Zofran Inj) 4 mg Q6H PRN IV NAUSEA AND/OR VOMITING Last administered on 08/25/17 05:20; Admin Dose 4 MG; Start 08/24/17 at 14:00 Ketorolac Tromethamine (Toradol) 30 mg Q6H PRN IV PAIN Last administered on 05:19; Admin Dose 30 MG; Start 08/24/17 at 14:00; Stop 08/27/17 at 13: 59 Morphine Sulfate (morphine) 2 mg Q4H PRN IV pain; Start 08/24/17 at 14:00 Docusate Sodium (Colace) 100 mg BID PO ; Start 08/24/17 at 15:00 Tamsulosin HCl (Flomax) 0.4 mg HS PO Last administered on 08/25/17 20:40; Admin Dose 0.4 MG; Start 08/25/17 at 21:00 TARIQ CALDERA NP Aug 26, 2017 10:53
--- NOTE | 2017-08-26 10:55 | PN ---
Date/Time of Note Date/Time of Note DATE: 08/26/17 TIME: 10:54 Assessment/Plan VTE Prophylaxis VTE Prophylaxis Intervention: SCD's Lines/Catheters IV Catheter Type (from [facility]): Peripheral IV Urinary Cath still in place: No Assessment/Plan Chief Complaint/Hosp Course 1. Right hydronephrosis secondary to obstructing renal stone. -Continue IV hydration. -Continue empiric antibiotics. -Continue pain control. -Being followed by urology. 2. Medullary nephrocalcinosis causing recurrent nephrolithiasis. -Continue urology recommendations. 3. Urinary tract infection. -Continue antimicrobials. 4. Morbid obesity. BMI of 52.1 kg/m. -Endocrinology follow-up. 5. Fluids, electrolytes, and nutrition. -Calorie controlled diet. 6. DVT prophylaxis. -Bilateral SCDs. 7. Plan. -Continue pain control. -Continue IV hydration. -Await further recommendations from consultants. Case discussed with Dr. Mccauley. Problems: Subjective 24 Hr Interval Summary Free Text/Dictation Denies any pain. Remains afebrile. Exam/Review of Systems Vital Signs Vitals Vital Signs Date Time Temp Pulse Resp B/P Pulse Ox O2 Delivery O2 Flow Rate FiO2 08/26/17 08:01 98.4 88 18 141/103 99 08/24/17 22:58 Room Air Intake and Output 08/25/17 08/25/17 08/26/17 15:00 23:00 07:00 Intake Total 950 ml 1960 ml 2350 ml Output Total 1675 ml Balance 950 ml 285 ml 2350 ml Exam General: Morbidly obese 41 year-old female lying in bed in no apparent distress. HEENT: Normocephalic, atraumatic. Eyes: Anicteric sclerae, conjunctivae clear. ENT: Nasal septum midline, oral mucosa moist. Neck supple, no JVD noticed. Respiratory: Bilaterally clear breath sounds. No use of accessory muscles of respiration. No adventitious breath sounds. Cardiovascular: S1, S2 heard. No murmurs or gallops. Abdomen: Soft, nontender, and nondistended. Bowel sounds positive in all 4 quadrants. Genitourinary: Deferred. Extremities: No cyanosis, no clubbing, no edema. Peripheral pulses palpable. Neurologic: Cranial nerves II through XII grossly intact. The patient is awake, alert, and oriented. Skin: Normal skin turgor. No skin rashes. Results Result Diagram: 08/26/17 0513 08/26/17 0512 Results 24 hrs Laboratory Tests Test 08/26/17 05:12 08/26/17 05:13 Sodium Level 140 Potassium Level 4.8 Chloride Level 104 Carbon Dioxide Level 24 Anion Gap 17 H Blood Urea Nitrogen 12 Creatinine 0.72 Glucose Level 137 Hemoglobin A1c 6.2 H Calcium Level 9.3 Magnesium Level 2.0 Random Cortisol 1.6 White Blood Count 12.7 H Red Blood Count 4.98 Hemoglobin 13.2 Hematocrit 41.1 Mean Corpuscular Volume 82.5 Mean Corpuscular Hemoglobin 26.5 L Mean Corpuscular Hemoglobin Concent 32.1 Red Cell Distribution Width 14.3 Platelet Count 376 Mean Platelet Volume 9.9 Neutrophils % 81.0 H Lymphocytes % 14.8 L Monocytes % 2.9 Eosinophils % 0.6 Basophils % 0.3 Nucleated Red Blood Cells % 0.0 Neutrophils # 10.3 H Lymphocytes # 1.9 Monocytes # 0.4 Eosinophils # 0.1 Basophils # 0.0 Nucleated Red Blood Cells # 0.0 Phosphorus Level 2.8 Triglycerides Level 93 Cholesterol Level 168 LDL Cholesterol, Calculated 119 HDL Cholesterol 30 L Cholesterol/HDL Ratio 5.6 Medications Medications Current Medications Ceftriaxone Sodium 500 mg/ Sodium Chloride 50 ml @ 100 mls/hr Q24H IVPB Last administered on 08/25/17 16:39; Admin Dose 100 MLS/HR; Start 08/25/17 at 13: 30 Sodium Chloride (NS) 1,000 ml @ 125 mls/hr Q8H IV Last administered on 07:39; Admin Dose 125 MLS/HR; Start 08/24/17 at 14:00 Ondansetron HCl (Zofran Inj) 4 mg Q6H PRN IV NAUSEA AND/OR VOMITING Last administered on 08/25/17 05:20; Admin Dose 4 MG; Start 08/24/17 at 14:00 Ketorolac Tromethamine (Toradol) 30 mg Q6H PRN IV PAIN Last administered on 05:19; Admin Dose 30 MG; Start 08/24/17 at 14:00; Stop 08/27/17 at 13: 59 Morphine Sulfate (morphine) 2 mg Q4H PRN IV pain; Start 08/24/17 at 14:00 Docusate Sodium (Colace) 100 mg BID PO ; Start 08/24/17 at 15:00 Tamsulosin HCl (Flomax) 0.4 mg HS PO Last administered on 08/25/17t 20:40; Admin Dose 0.4 MG; Start 08/25/17 at 21:00 Procedures Procedures Name: LUCRETIA GRIGGS Age/Sex: 41/F Attend Dr: RUTHANN LOPEZ Acct: [id number] MR# : [id number] : 1975 Location: [facility] 2261-A Admit: 08/24/17 Specimen: [id number] Status: Resulted Karyn: 08/24/17 Rcvd: 08/24 Source: BHAVESH GAUTHIER Sp Descrip: Procedure Result Microbiology URINE CULTURE Preliminary Organism 1 GRAM NEGATIVE KATERINA COLONY COUNT >100,000 CFU/ml ................................................................................ ............ Flags: Critical Hi = *H Critical Lo = *L Microbiology Abnormal = * Abnormal Hi = H Abnormal Lo = L Blood Bank Abnormal = * Susceptability Flags: S = Sensitive R = Resistant I = Intermediate END OF REPORT TARIQ CALDERA NP Aug 26, 2017 10:55
--- NOTE | 2017-08-26 12:08 | CONS ---
Date/Time of Note Date/Time of Note DATE: 08/26/17 TIME: 12:06 Assessment/Plan Assessment/Plan Chief Complaint/Hosp Course 41-year-old single female with a history of renal stone disease. She had an obstructing renal stone 2007 and underwent extracorporeal shockwave lithotripsy by urologist whose name she does not recall. She has never had any type of evaluation does not recall ever having done 24 urinary collections. She does not recall ever having told of an abnormal level calcium in the bloodstream. There is no family history of calcium disturbances and as far she knows she has never had a family member with medullary sponge kidney. She does reports that she has been told that she has medullary sponge kidney but she does not see tipple repairer and has not seen a urologist until this admission except for 2007 Problems: (1) Ureterolithiasis Status: Acute Comment: As per Dr. Pang. The 24-hour urine collections are pending as are the PTH levels. 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 Fortunately the patient appears to have intact renal function (3) Morbid obesity with BMI of 50.0-59.9, adult Status: Chronic Comment: Re-counseled. Please note she has a normal dexamethasone suppression test i.e. this is not hypercortisolism; this is a behavioral issue (4) UTI (urinary tract infection) Status: Acute Comment: Final culture results pending Qualifiers: Urinary tract infection type: acute cystitis Hematuria presence: without hematuria Qualified Code: N30.00 - Acute cystitis without hematuria Consultation Date/Type/Reason Admit Date/Time Aug 24, 2017 at 16:27 Initial Consult Date 08/25/17 Type of Consultation: Endocrinology Reason for Consultation Nephrocalcinosis in the setting of medullary sponge kidney Referring Provider: RUTHANN LOPEZ 24 HR Interval Summary Free Text/Dictation Patient reports she is feeling better. She is curious about whether or not she is feeling better because she is being treated for urinary tract infection. She has not have any awareness of having passed a stone Constitutional: no complaints Exam/Review of Systems Vital Signs Vitals Vital Signs Date Time Temp Pulse Resp B/P Pulse Ox O2 Delivery O2 Flow Rate FiO2 08/26/17 08:01 98.4 88 18 141/103 99 08/24/17 22:58 Room Air Intake and Output 08/25/17 08/25/17 08/26/17 15:00 23:00 07:00 Intake Total 950 ml 1960 ml 2350 ml Output Total 1675 ml Balance 950 ml 285 ml 2350 ml Exam Constitutional: alert, oriented Respiratory: clear to auscultation, normal air movement Cardiovascular: nl pulses, regular rate and rhythm Results Result Diagram: 08/26/17 0513 08/26/17 0512 Results 24 hrs Laboratory Tests Test 08/26/17 05:12 08/26/17 05:13 Sodium Level 140 Potassium Level 4.8 Chloride Level 104 Carbon Dioxide Level 24 Anion Gap 17 H Blood Urea Nitrogen 12 Creatinine 0.72 Glucose Level 137 Hemoglobin A1c 6.2 H Calcium Level 9.3 Magnesium Level 2.0 Random Cortisol 1.6 White Blood Count 12.7 H Red Blood Count 4.98 Hemoglobin 13.2 Hematocrit 41.1 Mean Corpuscular Volume 82.5 Mean Corpuscular Hemoglobin 26.5 L Mean Corpuscular Hemoglobin Concent 32.1 Red Cell Distribution Width 14.3 Platelet Count 376 Mean Platelet Volume 9.9 Neutrophils % 81.0 H Lymphocytes % 14.8 L Monocytes % 2.9 Eosinophils % 0.6 Basophils % 0.3 Nucleated Red Blood Cells % 0.0 Neutrophils # 10.3 H Lymphocytes # 1.9 Monocytes # 0.4 Eosinophils # 0.1 Basophils # 0.0 Nucleated Red Blood Cells # 0.0 Phosphorus Level 2.8 Triglycerides Level 93 Cholesterol Level 168 LDL Cholesterol, Calculated 119 HDL Cholesterol 30 L Cholesterol/HDL Ratio 5.6 Medications Medications Current Medications Ceftriaxone Sodium 500 mg/ Sodium Chloride 50 ml @ 100 mls/hr Q24H IVPB Last administered on 08/25/17 16:39; Admin Dose 100 MLS/HR; Start 08/25/17 at 13: 30 Sodium Chloride (NS) 1,000 ml @ 125 mls/hr Q8H IV Last administered on 07:39; Admin Dose 125 MLS/HR; Start 08/24/17 at 14:00 Ondansetron HCl (Zofran Inj) 4 mg Q6H PRN IV NAUSEA AND/OR VOMITING Last administered on 08/25/17 05:20; Admin Dose 4 MG; Start 08/24/17 at 14:00 Ketorolac Tromethamine (Toradol) 30 mg Q6H PRN IV PAIN Last administered on 05:19; Admin Dose 30 MG; Start 08/24/17 at 14:00; Stop 08/27/17 at 13: 59 Morphine Sulfate (morphine) 2 mg Q4H PRN IV pain; Start 08/24/17 at 14:00 Docusate Sodium (Colace) 100 mg BID PO ; Start 08/24/17 at 15:00 Tamsulosin HCl (Flomax) 0.4 mg HS PO Last administered on 08/25/17 20:40; Admin Dose 0.4 MG; Start 08/25/17 at 21:00 KWAME CLEMONS MD Aug 26, 2017 12:08
[2017-08-26] MEDS: CEFTRIAXONE 500 MG in SOD CHLORIDE 0.9% 50 ML IVPB SCH (13:10)
[2017-08-26 13:40] LABS: SCRET 0.72 mg/dl (0.44-1.00)
[2017-08-26 14:00] VITALS: BP 140/88; RESP 18
[2017-08-26 20:03] VITALS: BP 139/77; RESP 19
[2017-08-26] MEDS: TAMSULOSIN (SR) 0.4 MG CAP PO SCH (20:34)
[2017-08-27] MEDS: SOD CHLORIDE 0.9% 1,000 ML IV SCH ×2 (00:56→10:34)
[2017-08-27 02:07] VITALS: BP 113/73; RESP 18
[2017-08-27 06:06] LABS: HEMATOCRIT 39.2 % (37.0-47.0); HEMOGLOBIN 12.5 g/dl (12.0-16.0); MEAN CORPUSCULAR HEMOGLOBIN 26.5 pg (29.0-33.0); MEAN CORPUSCULAR HGB CONC 31.9 g/dl (32.0-37.0); MEAN CORPUSCULAR VOLUME 83.2 fl (82.0-101.0); MEAN PLATELET VOLUME 9.9 fl (7.4-10.4); PLATELET COUNT 355 10^3/UL (140-415); RED BLOOD COUNT 4.71 10^6/ul (4.20-5.40); RED CELL DISTRIBUTION WIDTH 14.4 % (11.5-14.5); WHITE BLOOD COUNT 12.2 10^3/ul (4.8-10.8)
[2017-08-27 06:13] LABS: POSITIVE DIFF @See below
[2017-08-27 07:05] LABS: CALCIUM 8.9 mg/dl (8.4-10.2); CREATININE 0.79 mg/dl (0.44-1.00); POTASSIUM 4.3 mmol/L (3.5-5.1)
[2017-08-27 07:26] LABS: MAGNESIUM 1.8 mg/dl (1.7-2.5); PHOSPHORUS 3.9 mg/dl (2.5-4.9)
[2017-08-27 07:59] LABS: ANISOCYTOSIS 3+ (0-0); EOSINOPHILS % (M) 1 % (0-7); MICROCYTOSIS 3+ (0-0); MONOCYTES % (M) 4 % (0-11); PLATELET ESTIMATE NORMAL; POLYCHROMASIA 1+ (0-0); REACTIVE LYMPHOCYTES% (M) 4 % (0-0)
--- NOTE | 2017-08-27 08:07 | CONS ---
Date/Time of Note Date/Time of Note DATE: 08/27/17 TIME: 08:02 Consult Date/Type/Reason Admit Date/Time Aug 24, 2017 at 16:27 Initial Consult Date 08/25/17 Type of Consultation: Urology Reason for Consultation Right ureteral stone and urinary tract infection Ordering Provider: RUTHANN LOPEZ Subjective Patient states that she is feeling well and she has no pain in the past 2 days. There is no nausea or vomiting. She does have a UTI and she stated that she has a UTI quite often Objective Vital Signs Date Time Temp Pulse Resp B/P Pulse Ox O2 Delivery O2 Flow Rate FiO2 08/27/17 02:07 98.5 89 18 113/73 97 08/24/17 22:58 Room Air Intake and Output 08/26/17 08/26/17 08/27/17 15:00 23:00 07:00 Intake Total 2370 ml 1730 ml Output Total 1100 ml 1800 ml Balance 1270 ml -70 ml Exam Patient is afebrile, the abdomen is obese but soft, no flank tenderness. Results/Medications Result Diagram: 08/27/17 0522 08/27/17 0522 Results 24 hrs Laboratory Tests Test 08/27/17 05:22 White Blood Count 12.2 H Red Blood Count 4.71 Hemoglobin 12.5 Hematocrit 39.2 Mean Corpuscular Volume 83.2 Mean Corpuscular Hemoglobin 26.5 L Mean Corpuscular Hemoglobin Concent 31.9 L Red Cell Distribution Width 14.4 Platelet Count 355 Mean Platelet Volume 9.9 Neutrophils % Segmented Neutrophils % (Manual) 61 Lymphocytes % Lymphocytes % (Manual) 30 Reactive Lymphocytes % (Manual) 4 H Monocytes % Monocytes % (Manual) 4 Eosinophils % Eosinophils % (Manual) 1 Basophils % Nucleated Red Blood Cells % 0.0 Neutrophils # Absolute Lymphocytes (Manual) 3.6 H Lymphocytes # Reactive Lymphocytes # 0.4 H Monocytes # Absolute Monocytes (Manual) 0.4 Eosinophils # Basophils # Nucleated Red Blood Cells # Platelet Estimate NORMAL Polychromasia 1+ Anisocytosis 3+ Microcytosis 3+ Sodium Level 140 Potassium Level 4.3 Chloride Level 105 Carbon Dioxide Level 26 Anion Gap 13 Blood Urea Nitrogen 13 Creatinine 0.79 Glucose Level 108 Calcium Level 8.9 Phosphorus Level 3.9 Magnesium Level 1.8 Medications Current Medications Ceftriaxone Sodium 500 mg/ Sodium Chloride 50 ml @ 100 mls/hr Q24H IVPB Last administered on 08/26/17 13:10; Admin Dose 100 MLS/HR; Start 08/25/17 at 13: 30 Sodium Chloride (NS) 1,000 ml @ 125 mls/hr Q8H IV Last administered on 00:56; Admin Dose 125 MLS/HR; Start 08/24/17 at 14:00 Ondansetron HCl (Zofran Inj) 4 mg Q6H PRN IV NAUSEA AND/OR VOMITING Last administered on 08/25/17 05:20; Admin Dose 4 MG; Start 08/24/17 at 14:00 Ketorolac Tromethamine (Toradol) 30 mg Q6H PRN IV PAIN Last administered on 05:19; Admin Dose 30 MG; Start 08/24/17 at 14:00; Stop 08/27/17 at 13: 59 Morphine Sulfate (morphine) 2 mg Q4H PRN IV pain; Start 08/24/17 at 14:00 Docusate Sodium (Colace) 100 mg BID PO ; Start 08/24/17 at 15:00 Tamsulosin HCl (Flomax) 0.4 mg HS PO Last administered on 08/26/17 20:34; Admin Dose 0.4 MG; Start 08/25/17 at 21:00 Assessment/Plan Chief Complaint/Hosp Course 41-year-old female with a history of medullary sponge kidney, bilateral kidney stones, history of extra corporeal shockwave lithotripsy in 2007, presented to the emergency room was right flank pain and the CT scan showed a 6 mm stone in the upper ureter. The patient states that she did pass a 6 mm stone before. The patient had no pain in the past 2 days, her renal function is stable, creatinine 0.79. The urine culture did show E. coli resistant to Cipro and Levaquin but sensitive to Bactrim. The last KUB she had did not show the stone which basically means either the stone has passed but most likely it is obscured by bowel content and her body habitus and it may be over the sacroiliac area where it is more difficult to see. Since she is stable and afebrile and had no pain in 2 days she may be discharged home on Flomax and Bactrim DS and follow-up with her primary care physician.the primary care physician could refer her to me or any urologist who is contracted with her plan the patient should continue to strain her urine at home Problems: JAMAL GAMBOA MD Aug 27, 2017 08:07
[2017-08-27 08:16] VITALS: BP 130/82; RESP 18
[2017-08-27] MEDS: DOCUSATE SODIUM 100 MG CAP PO SCH (08:39)
--- NOTE | 2017-08-27 11:01 | PDOCDIS ---
Discharge Instructions CONDITION Patient Condition: Stable HOME CARE INSTRUCTIONS: Special Diet: 2000 HUBERT FOLLOW UP/APPOINTMENTS Follow-up Plan 1. Please follow up with your primary care provider and Dr. Addy Pang for recurrent kidney stones 2. Continue bactrim (antibiotic) until finished, continue flomax until you see your primary care provider/urologist 3. Continue all other home medications 4. Continue to strain urine for possible stone analysis in the future ORVILLE WILKERSON Aug 27, 2017 11:01
[2017-08-27] MEDS ORDERED: TAMS-14 PO (11:02)
[2017-08-27] MEDS ORDERED: SULF1TAB31 PO (11:02)
--- NOTE | 2017-08-27 20:17 | DS ---
Date/Time of Note Date/Time of Note DATE: 08/27/17 TIME: 20:16 Discharge Summary Admission/Discharge Info Admit Date/Time Aug 24, 2017 at 16:27 Discharge Date/Time Aug 27, 2017 at 13:34 Patient Condition: Stable Hospital Course Patient is a 41-year-old female with past medical history of recurrent UTI and kidney stones who presents to [facility] for abdominal pain and subsequent finding on CT of hydroureteronephrosis. Patient was evaluated in the inpatient service and subsequently seen by urology who had monitored and subsequently cleared the patient to be discharged as the patient was not having any abdominal pain and renal function was within normal limits. Patient does however have a UTI and will be prescribed antibiotics as well as Flomax per urology recommendations. The importance of hydration and following up with her primary care physician as well as a urologist as soon as possible was explained and patient understands. Home Meds Active Scripts Sulfamethoxazole/Trimethoprim* (Bactrim Ds* Tablet) 1 Each Tablet, 1 TAB PO BID for 7 Days, #14 TAB Prov:ORVILLE WILKERSON 08/27/17 Tamsulosin Hcl* (Flomax*) 0.4 Mg Cap.er.24h, 0.4 MG PO HS for 30 Days, #30 CAP Prov:ORVILLE WILKERSON 08/27/17 Tramadol HCl (Tramadol HCl) 50 Mg Tablet, 50 MG PO Q6 Y for PAIN, #15 TAB Prov:KEKE TORRES PA-C 03/29/17 Cetirizine Hcl* (Zyrtec*) 10 Mg Capsule, 10 MG PO DAILY, #10 TAB.CHEW Prov:NORMAN EID NP 11/17/15 Ibuprofen* (Motrin*) 800 Mg Tab, 800 MG PO Q6H Y for PAIN AND OR ELEVATED TEMP, #30 TAB Prov:JOSE RIVERA NP 08/23/15 Fluticasone Propionate* (Flonase* Nasal) 50 Mcg/Clayton - 16 Gm Clayton.susp, 1 SPRAY NASAL DAILY, #1 BOTTLE Prov:JOSE RIVERA NP 03/18/15 Sodium Chloride (Saline Nasal Clayton) 45 Ml Clayton, 2 SPR NS Q2H Y for NASAL CONGESTION, #1 BOT Prov:JOSE RIVERA NP 03/18/15 Reported Medications Buspirone Hcl* (Buspirone Hcl*) 5 Mg Tablet, PO BID 07/31/12 Ranitidine Hcl (Zantac) 150 Mg Tablet, PO BID 07/31/12 Discontinued Scripts Ciprofloxacin Hcl* (Ciprofloxacin Hcl*) 500 Mg Tablet, 500 MG PO BID for 7 Days , TAB Prov:KEKE TORRES PA-C 03/29/17 Ibuprofen* (Motrin*) 600 Mg Tab, 600 MG PO Q6, #30 TAB Prov:KEKE TORRES PA-C 03/29/17 Cephalexin* (Keflex*) 500 Mg Capsule, 500 MG PO QID for 5 Days, CAP Prov:ORVILLE SOARES MD 12/15/16 Furosemide* (Lasix*) 40 Mg Tablet, 40 MG PO DAILY, #6 TAB Prov:ORVILLE SOARES MD 12/15/16 Naproxen* (Naprosyn*) 500 Mg Tablet, 500 MG PO BID Y for PAIN AND/OR INFLAMMATION, #30 TAB Prov:ORVILLE SOARES MD 12/15/16 Ondansetron (Ondansetron Odt) 4 Mg Tab.rapdis, 4 MG PO Q6H Y for NAUSEA AND/OR VOMITING, #10 TAB Prov:DARREN AVILEZ PA-C 08/04/16 Ciprofloxacin Hcl* (Ciprofloxacin Hcl*) 500 Mg Tablet, 500 MG PO BID for 7 Days , TAB Prov:DARREN AVILEZ PA-C 08/04/16 Dextromethorphan Hb-Promethazine Hcl (Promethazine DM Syrup) 180 Ml Syrup, 10 ML PO Q6 Y for COUGH for 10 Days, ML Prov:NORMAN EID NP 11/17/15 Cephalexin* (Keflex*) 500 Mg Capsule, 500 MG PO BID for 7 Days, CAP Prov:JOSE RIVERA NP 08/23/15 Azithromycin* (Zithromax*) 250 Mg Tablet, 250 MG PO .DILLON DIRECTED, #6 TAB TAKE 500 MG (2 TABS) THE FIRST DAY THEN 250 MG (1 TAB) DAYS 2-5 Prov:NORMAN EID NP 08/13/15 Ibuprofen* (Motrin*) 800 Mg Tab, 800 MG PO Q6H Y for PAIN AND OR ELEVATED TEMP, #30 TAB Prov:JOSE RIVERA NP 03/18/15 Follow-up Plan 1. Please follow up with your primary care provider and Dr. Addy Pang for recurrent kidney stones 2. Continue bactrim (antibiotic) until finished, continue flomax until you see your primary care provider/urologist 3. Continue all other home medications 4. Continue to strain urine for possible stone analysis in the future Primary Care Provider Davey Freeman MD Pending Labs Laboratory Tests Test 08/27/17 05:22 White Blood Count 12.210^3/ul (4.8-10.8) Red Blood Count 4.7110^6/ul (4.20-5.40) Hemoglobin 12.5g/dl (12.0-16.0) Hematocrit 39.2% (37.0-47.0) Mean Corpuscular Volume 83.2fl (82.0-101.0) Mean Corpuscular Hemoglobin 26.5pg (29.0-33.0) Mean Corpuscular Hemoglobin Concent 31.9g/dl (32.0-37.0) Red Cell Distribution Width 14.4% (11.5-14.5) Platelet Count 92266^3/UL (140-415) Mean Platelet Volume 9.9fl (7.4-10.4) Neutrophils % % (39.0-77.0) Segmented Neutrophils % (Manual) 61% (39-77) Lymphocytes % % (15.0-51.0) Lymphocytes % (Manual) 30% (15-51) Reactive Lymphocytes % (Manual) 4% (0-0) Monocytes % % (0.0-11.0) Monocytes % (Manual) 4% (0-11) Eosinophils % % (0.0-7.0) Eosinophils % (Manual) 1% (0-7) Basophils % % (0.0-2.0) Nucleated Red Blood Cells % 0.0/100WBC (0.0-0.0) Neutrophils # 10^3/ul (1.6-7.5) Absolute Lymphocytes (Manual) 3.610^3/ul (0.8-2.9) Lymphocytes # 10^3/ul (0.8-2.9) Reactive Lymphocytes # 0.410^3/ul (0.0-0.0) Monocytes # 10^3/ul (0.3-0.9) Absolute Monocytes (Manual) 0.410^3/ul (0.3-0.9) Eosinophils # 10^3/ul (0.0-0.5) Basophils # 10^3/ul (0.0-0.1) Nucleated Red Blood Cells # 10^3/ul (0.0-0.0) Platelet Estimate NORMAL Polychromasia 1+ (0-0) Anisocytosis 3+ (0-0) Microcytosis 3+ (0-0) Sodium Level 140mmol/L (135-144) Potassium Level 4.3mmol/L (3.5-5.1) Chloride Level 105mmol/L (97-110) Carbon Dioxide Level 26mmol/L (21-31) Anion Gap 13 (8-16) Blood Urea Nitrogen 13mg/dl (7-20) Creatinine 0.79mg/dl (0.44-1.00) Glucose Level 108mg/dl (70-220) Calcium Level 8.9mg/dl (8.4-10.2) Phosphorus Level 3.9mg/dl (2.5-4.9) Magnesium Level 1.8mg/dl (1.7-2.5) ORVILLE WILKERSON Aug 27, 2017 20:17
== END 2017-08-27 13:34 | disposition home or self-care (01) | DRG 694 ==
LOC: FTE 08:36 → PP2 16:27
PROVIDERS: ADMIT Family Medicine; ATTEND Family Medicine
DX: N13.2 Hydronephrosis with renal and ureteral calculous obstruction (principal); N30.00 Acute cystitis without hematuria; Q61.5 Medullary cystic kidney; Z68.43 Body mass index [BMI] 50.0-59.9, adult; B96.20 Unspecified Escherichia coli [E. coli] as the cause of diseases classified elsewhere; E66.01 Morbid (severe) obesity due to excess calories; Z87.442 Personal history of urinary calculi
CPT/HCPCS: 36415; 74000; 74176; 80048; 80053; 80061; 81001; 82330; 82340; 82533; 82575; 83036; 83690; 83735; 83945; 83970; 84100; 84443; 84703; 85025; 86706; 86803; 87086; 87340; 96361; 96374; 96375; 96376; J0696; J1885; J2270; J2405; J7030

== ENCOUNTER 2017-11-13 11:12 | Emergency (ER) | END 2017-11-13 20:40 | disposition short-term general hospital (02) ==